=== PATIENT | female | born 1960 | race Caucasian/White ===

== ENCOUNTER → 2018-09-14 15:14 | Outpatient (POV) | payer BC, SELFPAY | PROVIDERS: Visit Provider Dermatology | DX: Z00.00 Encounter for general adult medical examination without abnormal findings (principal) ==

== ENCOUNTER 2019-09-28 23:28 | Emergency (ER) | payer OTHER, BC, SELFPAY ==
[2019-09-28 23:30] VITALS: BP 143/87; PULSE 80; RESP 16; TEMP 36.6; O2SAT 100; BMI 41.1
--- NOTE | 2019-09-29 00:02 | HMH.EDLOEX ---
ED Disposition Clinical Impression: Right knee injury Qualifiers: Encounter type: initial encounter Qualified Code(s): S89.91XA - Unspecified injury of right lower leg, initial encounter Injury of lower leg Qualifiers: Encounter type: initial encounter Laterality: right Qualified Code(s): S89.91XA - Unspecified injury of right lower leg, initial encounter Patellar fracture Qualifiers: Encounter type: initial encounter Fracture type: closed Fracture morphology: unspecified fracture morphology Fracture alignment: nondisplaced Laterality: right Qualified Code(s): S82.001A - Unspecified fracture of right patella, initial encounter for closed fracture Disposition: Home, Self-Care Condition on Discharge: Good Instructions: DI for Knee Pain Additional Instructions: see pcp and ortho for follow up - workman comp form completes Referrals: Abhi Flynn MD [Primary Care Provider] - - Critical Care Critical Care Time: No Attestation: On 09/28/19, the high probability of a clinically significant, sudden or life threatening deterioration of the following system(s) required my full and direct attention, intervention and personal management. The time I documented below is in addition to time spent performing reported procedures but includes the following listed in this critical care notation. Medical Decision Making - Medical Records Medical records reviewed: Yes: I reviewed the patient's medical records. - Isaac Inquiry Pt receiving controlled substance: No Vital Signs: 09/28/19 23:30 09/29/19 00:30 Temperature 97.9 F Temperature Source Oral Pulse Rate [Left Radial] 80 71 Respiratory Rate 16 16 Blood Pressure [Right Arm] 143/87 H 127/78 Blood Pressure Mean [Right Arm] 105 94 Blood Pressure Source [Right Arm] Automatic Cuff Automatic Cuff Blood Pressure Position [Right Arm] Sitting Sitting 02 Sat by Pulse Oximetry 100 100 Oxygen Delivery Method Room Air Room Air - Lab Data Lab results reviewed: Yes: I reviewed the patient's lab results. Orders (Tests/Meds): ORDERS Category Date Time Status XR knee RT 3V Stat Exams 09/29/19 00:12 Taken XR tibia fibula RT 2V Stat Exams 09/29/19 00:16 Taken - Radiology Data #1 Image(s): Knee, Tib/Fib Image Reviewed: Yes I reviewed the patient's radiology image Preliminary Findings: Abnormal (possible patellar avulsion fx ) Lower Extremity Injury HPI - General Chief Complaint: Extremity Injury, Lower Stated Complaint: AER Pain in Rt knee Fall 2044 work Time Seen by Provider: 09/28/19 23:40 Mode of Arrival: Wheelchair Source of Information: Patient, Medical Record Limitations: No Limitations Description of Symptoms (Recalled from ER Triage Doc. by RN): pt works at [employer] and stated she tripped on a rug and fell on her right knee. pt denies any LOC or head injury or hip pain at this time. - History of Present Illness HPI Narrative: pt works at [employer] and tripped with rt lower and rt knee injury - no other c/o MD complaint: knee injury, leg injury Onset (ago): hour(s) Injury: Right: knee Type of Injury: blunt Place: work Severity: moderate Context: fall Associated symptoms: swelling, able to partially bear weight Other symptoms: none - Related Data Home Medications Medication Instructions Recorded Confirmed aspirin 81 mg tablet,delayed 81 mg PO DAILY 12/17/17 11/26/18 release calcium carbonate 500 mg calcium 500 mg PO BID tab 12/17/17 11/26/18 (1,250 mg) tablet carvedilol 12.5 mg tablet 12.5 mg PO DAILY 30 Days #60 tab 12/17/17 11/26/18 cholecalciferol (vitamin D3) 25 1,000 unit PO DAILY 12/17/17 11/26/18 mcg (1,000 unit) capsule citalopram 20 mg tablet 20 mg PO DAILY 30 Days #30 tab 12/17/17 11/26/18 ergocalciferol (vitamin D2) 1,250 50,000 units PO DAILY 84 Days #3 12/17/17 11/26/18 mcg (50,000 unit) capsule cap furosemide 20 mg tablet 20 mg PO DAILY 60 Days #30 tab 12/17/17 11/26/18 multivitamin with minerals 2 tab PO TID
--- NOTE | 2019-09-29 00:12 | XR_ITS ---
PROCEDURE: XR KNEE RT 3V CLINICAL INDICATION: fall at work Posttraumatic pain COMPARISON: No exams were available for comparison FINDINGS: No fracture or dislocation. No lytic or blastic change. There is normal mineralization. Osteoarthritic changes are present involving all 3 compartments Other findings:None. IMPRESSION: Osteoarthritis otherwise negative Dictated by: Pan Chase MD 09/29/2019 10:19 Electronically signed by Pan Chase MD in [place] 09/29/2019 10:19
--- NOTE | 2019-09-29 00:16 | XR_ITS ---
PROCEDURE: XR TIBIA FIBULA RT 2V CLINICAL INDICATION: fall at work Fall with injury and pain COMPARISON: No exams were available for comparison FINDINGS: No fracture or dislocation. No lytic or blastic change. There is normal mineralization. Mild osteoarthritic changes at the knee Other findings:None. IMPRESSION: No acute findings. Dictated by: Pan Chase MD 09/29/2019 10:29 Electronically signed by Pan Chase MD in [place] 09/29/2019 10:29
[2019-09-29 00:30] VITALS: BP 127/78; PULSE 71; RESP 16; O2SAT 100
--- NOTE | 2019-09-29 01:10 | PC.NURSE ---
Pt states she has a knee immobilizer at home already, pt given crutches and demonstrated use.
[2019-09-29 01:21] VITALS: BP 121/69; PULSE 84; RESP 16; TEMP 36.9; O2SAT 98
== END 2019-09-29 01:25 | disposition home or self-care (01) ==
PROVIDERS: Emergency Provider Emergency Medicine; PCP Family Medicine
DX: S82.001A Unspecified fracture of right patella, initial encounter for closed fracture (principal); W01.0XXA Fall on same level from slipping, tripping and stumbling without subsequent striking against object, initial encounter; Y92.63 Factory as the place of occurrence of the external cause; Y99.0 Civilian activity done for income or pay
CPT/HCPCS: 73562; 73590; 99283

== ENCOUNTER 2019-12-08 08:00 | Outpatient (RCR) | payer OTHER, SELFPAY | END 2019-12-08 09:00 | disposition home or self-care (01) | LOC: PT 08:00 | PROVIDERS: Visit Provider Physician Assistant Surgical | DX: I89.0 Lymphedema, not elsewhere classified; S82.831D Other fracture of upper and lower end of right fibula, subsequent encounter for closed fracture with routine healing | CPT/HCPCS: 97010; 97014; 97110; 97140; 97163; 97164; 97760; G0283 ==

== ENCOUNTER → 2020-01-03 08:49 | Outpatient (CLI) | payer BC, SELFPAY ==
--- NOTE | 2020-01-03 09:00 | XR_ITS ---
PROCEDURE: XR SHOULDER LT MIN 2V CLINICAL INDICATION: LT SHOULDER PAIN,DECREASED ROM COMPARISON: No exams were available for comparison FINDINGS: Osteoarthritic changes are present at the acromioclavicular joint and glenohumeral joint. No significant subacromial stenosis. No fracture or dislocation. Other findings:None. IMPRESSION: Mild osteoarthritic change Dictated by: Pan Chase MD 01/03/2020 19:04 Pan Chase MD in [place] 01/03/2020 19:04
== END ==
PROVIDERS: PCP Nurse Practitioner Family; Visit Provider Nurse Practitioner Family
DX: M25.512 Pain in left shoulder (principal); M25.612 Stiffness of left shoulder, not elsewhere classified
CPT/HCPCS: 73030

== ENCOUNTER → 2020-01-13 08:47 | Outpatient (CLI) | payer BC, SELFPAY ==
--- NOTE | 2020-01-13 | CA_ITS ---
APPROVED REPORT Left Lower Extremity Venous Study for DVT. Specialist Physician: STACEY Indications Lower Extremity Pain: Left Lower Extremity Edema: Left Lower Extremity Swelling: Left Bruising left lower extremity post trauma 01/07/20. Patient fell over a dog injuring her left leg and head with this fall. Risk Factors Trauma Obesity Vein Imaging CFV (L): compressive, spontaneous, phasic, augmentation FEM (L): compressive, spontaneous, phasic, augmentation POP (L): compressive, spontaneous, phasic, augmentation PTV (L): Not Visualized GSV (L): compressive, spontaneous, phasic, augmentation SSV (L): Compressible Peroneals (L):Not Visualized GAS (L): Compressible Findings No evidence of DVT or superficial thrombophlebitis in the veins scanned of the left lower extremity. Non-vascularized cystic structure visualized in the left popliteal fossa consistent with bakers cyst. Conclusion No evidence of DVT or superficial thrombophlebitis in the veins scanned of the left lower extremity. Non-vascularized cystic structure visualized in the left popliteal fossa consistent with bakers cyst. Electronically signed by : Mando Howard MD 01/13/2020 18:13:19
--- NOTE | 2020-01-13 08:58 | XR_ITS ---
PROCEDURE: XR KNEE LT 3V Referring Doctor: Vidya Blevins Patient Age:59Y CLINICAL INDICATION: PAIN IN L LEG, INJURY OF LEFT LOWER EXTREMITY patient fell walking a dog on 01/07/2020. Anterior pain swelling bruising about knee and lower leg. Pain with bending the COMPARISON: CR XR KNEE RT 3V from 09/29/2019 FINDINGS: Left knee-three views AP lateral and oblique nonweightbearing but No discrete acute fracture evident. No dislocation but. No lytic or blastic change. There is normal mineralization. There are degenerative changes at the left knee with marginal osteophytes developing most evident from the medial margin of the medial compartment. Borderline to slight narrowing of the medial compartment on this nonweightbearing film but There appears to be a small joint effusion suprapatellar bursa. Also there appears to be some focal swelling or edema just overlying patellar tendon which may reflect recent trauma or hematoma. .. No foreign body evident IMPRESSION: No acute fracture evident. Degenerative changes at the left knee most evident developing at medial compartment. Suspect small joint effusion suprapatellar bursa Also suggestion some focal swelling or possible hematoma within soft tissues overlying the patellar tendon. Correlation required Dictated by: Mando Howard MD 01/13/2020 12:22 Mando Howard MD in [place] 01/13/2020 12:22
--- NOTE | 2020-01-13 08:59 | XR_ITS ---
PROCEDURE: XR FEMUR LT 2V Referring Doctor: Vidya Blevins Patient Age:59Y CLINICAL INDICATION: PAIN IN L LEG, INJURY OF LEFT LOWER EXTREMITY patient fell walking a dog on 01/07/2020. Anterior pain swelling bruising about knee and lower leg. Pain with bending the COMPARISON: CR XR KNEE LT 3V from 01/13/2020 CR XR TIBIA FIBULA LT 2V from 01/13/2020 FINDINGS: Left femur AP and lateral view performed. Left femur intact with no fracture or dislocation. No lytic or blastic change. There is normal mineralization.. This left mammary exam includes the left hip and left knee but no acute findings here. Degenerative changes at left knee noted along with likely small joint effusion suprapatellar bursa IMPRESSION: Left femur intact with no fracture. Dictated by: Mando Howard MD 01/13/2020 12:13 Mando Howard MD in [place] 01/13/2020 12:13
--- NOTE | 2020-01-13 08:59 | XR_ITS ---
PROCEDURE: XR TIBIA FIBULA LT 2V Referring Doctor: Vidya Blevins Patient Age:59Y CLINICAL INDICATION: PAIN IN L LEG, INJURY OF LEFT LOWER EXTREMITY patient fell walking a dog on 01/07/2020. Anterior pain swelling bruising about knee and lower leg. Pain with bending knee COMPARISON: CR XR TIBIA FIBULA RT 2V from 09/29/2019 CR XR KNEE LT 3V from 01/13/2020 FINDINGS: The tibia and fibula are intact no fracture evident. This lower leg study includes limited two views of ankle and left knee which reveal no acute fracture. Developing mild degenerative changes at the left knee most evident towards medial compartment observed IMPRESSION: Left lower leg intact. No fracture. . Dictated by: Mando Howard MD 01/13/2020 12:17 Mando Howard MD in [place] 01/13/2020 12:17
== END ==
PROVIDERS: PCP Nurse Practitioner Family; Visit Provider Nurse Practitioner Family
DX: M79.605 Pain in left leg (principal); M79.89 Other specified soft tissue disorders; S89.92XA Unspecified injury of left lower leg, initial encounter
CPT/HCPCS: 73552; 73562; 73590; 93971

== ENCOUNTER → 2020-02-09 09:14 | Outpatient (CLI) | payer BC, SELFPAY ==
--- NOTE | 2020-02-09 09:16 | XR_ITS ---
PROCEDURE: XR SHOULDER LT MIN 2V CLINICAL INDICATION: Lt shoulder pain Pain with limited range of motion COMPARISON: CR XR SHOULDER LT MIN 2V from 01/03/2020 FINDINGS: No fracture or dislocation. No lytic or blastic change. There is normal mineralization. There are osteoarthritic changes involving the acromioclavicular joint. No acute fracture or dislocation. No significant subacromial stenosis. The glenohumeral joint has an unremarkable appearance. Other findings:None. IMPRESSION: Mild osteoarthritis of the AC joint Dictated by: Pan Chase MD 02/09/2020 10:00 Pan Chase MD in [place] 02/09/2020 10:00
== END ==
PROVIDERS: PCP Family Medicine; Visit Provider Orthopaedic Surgery
DX: M25.512 Pain in left shoulder (principal)
CPT/HCPCS: 73030

== ENCOUNTER 2020-02-14 07:45 | Outpatient (RCR) | payer BC, SELFPAY ==
--- NOTE | 2020-02-14 09:01 | HMH.PTOPEV ---
PT Outpatient Evaluation Rehab PT Outpatient Evaluation Start: 02/14/20 08:48 Freq: Status: Active Protocol: Document 02/14/20 08:48 MALLY (Rec: 02/14/20 09:01 MALLY [id number]) Electronically Signed By John Da Silva, PT 02/14/20 08:48 Outpatient Therapy Subjective History Subjective History Patient is a 59 year old female presenting to outpatient PT with reports of chronic L shoulder pain of insidious onset starting approximately 4 months ago that has progressively gotten worse. Signs and symptoms consistent with L rotator cuff impingement syndrome. Significant forward shoulder posture noted. Most recent imaging indicates mild L shoulder ACJ OA. Comorbidities include SVT, HTN, hx of LS discectomy and elevated BMI. Chief Complaint Pain,Paresthesia,Weakness Symptom Type Ache,Numbness,Tingling Symptoms Relieved By Rest/Positioning,OTC Meds Symptoms Aggravated By Physical Activity,Lifting Prior Functional Limitations None Current Functional Limitations Reaching,Lifting,Housework, Dressing,Driving Symptom Description Intermittent Level of pain today (0-10) 0 Pain scale - at its best (0-10) 0 Pain scale - at its worst (0-10) 9 Shoulder/Elbow Eval Shoulder Objective Measurements Palpation Tenderness tenderness over the SA bursa shoulder left exam standard Shoulder Palpation Overall Comment 2/4 Posture Shoulder Posture Sitting Position (L) Forward,(R) Forward Shoulder Posture Standing Position (L) Forward,(R) Forward Scapula Posture Sitting Position (L) Protracted,(R) Protracted Scapular Posture Standing Position (L) Protracted,(R) Protracted Flexibilty Deficits Upper Trapezius Muscle Length (R) Moderate Tightness,(L) Moderate Tightness Levaetor Scapulae Muscle Length (R) Moderate Tightness,(L) Moderate Tightness Shoulder ROM Left Shoulder Abduction Active Range of 92 Motion (degrees) Shoulder Flexion Active Range of Motion 88 (degrees) Query Text: Shoulder External Rotation Active Range 80 of Motion (degrees) Shoulder Internal Rotation Active Range 65 of Motion (degrees) pain with active ROM shoulder exam left standard pain with passive ROM shoulder exam left standard
== END 2020-02-14 07:50 | disposition home or self-care (01) ==
LOC: PT 07:45
PROVIDERS: PCP Family Medicine; Visit Provider Orthopaedic Surgery
DX: M25.512 Pain in left shoulder (principal); M25.812 Other specified joint disorders, left shoulder; M75.42 Impingement syndrome of left shoulder
CPT/HCPCS: 97163

== ENCOUNTER → 2020-07-23 09:28 | Outpatient (CLI) | payer BC, SELFPAY | PROVIDERS: PCP Family Medicine; Visit Provider Nurse Practitioner Family | DX: R06.00 Dyspnea, unspecified (principal); R07.9 Chest pain, unspecified; R00.2 Palpitations; I10 Essential (primary) hypertension; R60.0 Localized edema | CPT/HCPCS: 93270 ==

== ENCOUNTER → 2020-08-10 06:15 | Outpatient (CLI) | payer BC, SELFPAY ==
--- NOTE | 2020-08-10 06:16 | NM_ITS ---
APPROVED REPORT Exam: Nuclear Stress Test Indication: HTN, FM HX., SOB, FATIGUE Patient Location: Outpatient Stress Tech: Breana YOUNG Tech:Zeynep JenningsJAYLON RT(R)(N) Ht: 5 ft 4 in Wt: 240 lbs Bra Size: 42DD HR: 77 bpm BP: 149/96 mmHg BSA: 2.11 m2 BMI: 41.1 History: HTN, FM HX., SOB, FATIGUE Procedure: Patient received a 0.4 mg of intravenous Lexiscan, resting heart rate 77 bpm, resting blood pressure 149/96 mmHg, with Lexiscan maximum heart rate achived was 106 bpm which is Less than 85 % of the maximum predicted heart rate and blood pressure was 170/109 mmHg. With Lexiscan, patient denied any complaint of chest pain. Electrocardiogram Resting electrocardiogram shows sinus rhythm, with Lexiscan there is less than 1.[address] segment depression noted from the baseline EKG. The EKG portion of the Lexiscan is nondiagnostic. Cardiac Stress and Resting SPECT Images: Cardiac Stress and Resting SPECT images were obtained using technetium 99m Myoview 32.9 mCi stress and 10.52 mCi at rest. Gated SPECT for analysis of segmental wall motion and calculation of the ejection fraction also done. Prone images were also obtained. Cardiac stress and resting SPECT images show uniform myocardial activity without segmental perfusion abnormality, computer derived ejection fraction is over 65% with no regional wall motion abnormality, right ventricle is normal size and contractility. However there is transient ischemic dilatation of the left ventricle seen, raising the concerns for presence of balanced ischemia. Conclusion: 1. The EKG portion of the Lexiscan is nondiagnostic. 2. No scintigraphic evidence of reversible ischemia seen, computer derived ejection fraction is over 65% with no regional wall motion abnormality, right ventricle is normal size and contractility, there is transient ischemic dilatation of the left ventricle seen, raising the concerns of balanced ischemia. 3. Abnormal Lexiscan Myoview study. Electronically signed by : Eliu Pires, 08/10/2020 11:38:09
--- NOTE | 2020-08-10 06:16 | CA_ITS ---
APPROVED REPORT Exam: Pharmacologic Technologist: Breana Ratliff Ht: 5 ft 4 in Wt: 240 lbs BSA: 2.11 m2 HR: 77 bpm BP: 149/96 mmHg Rhythm: Sinus rhythm Medical History Medical History: HTN Medications: Asa,,,,, Carvedilol,,,,, Citalopram,,,,, Lasix,,,,, Naproxen,,,,, Calcium,,,,, Vit D 3,,,,, Fexofenadine,,,,, Lisinopri/HCTZ,,,,, OmPEprazole,,,,, Cardiac Risk Factors: HTN Stress Test Details Test: LEXISCAN HR Resting HR: 80 bpm Max Heart Rate (APMHR): 163.856172 bpm Max HR Achieved: 117 bpm Target HR (85% APMHR): 138.681813 bpm % of APMHR: 71.78 Recovery HR: 95 bpm BP Resting BP: 149/96 mmHg Max BP: 170/109 mmHg Recovery BP: 170.0/109.0 mmHg ECG Resting ECG: Sinus rhythm Clinical Exercise duration: 04:01 min Highest Stage Achieved: Exercise capacity: 1.0 METs Stress ECG Conclusion During the lexiscan patient complained of shortness of breath during peak infusion. Resolved in recovery. No complaints of chest pain. No arrhythmias or ectopy noted. Less than 1.5mm ST segment changes. Images to follow. Instructed pt to take AM BP medications. Test Summary REST . . . . . . . Sitting REST 09:05 . . 80 . 149/ 96 . . Stage 1 . . . . . . . Myoview Injected Stage 1 01:00 . . 104 . . . . Stage 2 01:00 . . 106 . 150/ 90 . . Stage 3 01:00 . . 101 . 158/102 . . Stage 4 01:00 . . 93 . 167/107 . . Stage 4 01:01 . . 93 . 167/107 . Stop exercise at 04:01 RECOVERY 01:00 . . 93 . . . . RECOVERY 02:00 . . 93 . 170/109 . . RECOVERY 03:00 . . 87 . 170/109 . . RECOVERY 04:00 . . 86 . 170/109 . . RECOVERY 05:00 . . 86 . 170/109 . . RECOVERY 05:37 . . 86 . 144/ 90 . . Electronically signed by : Eliu Pires, 08/10/2020 10:11:08
--- NOTE | 2020-08-10 06:16 | CA_ITS ---
APPROVED REPORT EXAM: Comprehensive 2D, Doppler, and color-flow Echocardiogram Cia Agent: Marisela Sigala CRT Ht: 5 ft 4 in Wt: 240lbs BSA: 2.11 BP: 130/74 mmHg Indications: Chest Pain, Congestive Heart Failure, Shortness of Breath, Obesity, Palpitations, Peripheral Edema, SVT, NINOSKA, ex smoker 2D Dimensions LVOT 2.10 cm (M/F) 1.5-2.5 LA Volume 55.40 mL LA Volume Index 26.30 mL/m2 (M/F) 16-34 M-Mode Dimensions RVDd 2.34 cm (0.9-2.6) LA Diam 3.64 cm (1.9-4.0) LVDd 4.72 cm (3.5-5.7) Ao Diam 3.56 cm (2.0-3.7) LVDs 2.31 cm (3.5-5.7) IVSd 1.30 cm (0.6-1.1) PWd 0.87 cm (0.6-1.1) EF (Teich) 82.30% FS 51.10% EDV (Teich) 103.40 mL TAPSE 2.33 (<1.7) ESV (Teich) 18.30 mL LV Diastology E Decel Time 150.00 (160-240 msec) E/A Ratio 0.89 MED E' 7.30 (< 7 cm/sec) MED A' 8.60 cm/s E'/MED E' Ratio 15.33 (>14) LAT E' 9.40 (<10 cm/sec) LAT A' 17.10 cm/s E/LAT E' Ratio 11.90 (>14) Aortic Valve AO Peak GR. 10.50 mmHg Mitral Valve MV E Max Magdiel. 112.00 (40-130 cm/s) MV A Velocity 126.00 (40-130 cm/s) E/A Ratio 0.89 MV Decel. Time 150.00 (160-240 ms) MV PHT 44.00 ms Pulmonary Valve PV Peak Velocity 54.00 (50-150 cm/s) Tricuspid Valve TR P. Velocity 293.00 cm/s RAP Estimate 10.00 mmHg RVSP 44.30 mmHg Left Ventricle Left atrium is mildly enlarged, left ventricle is normal size, left ventricle wall thickness is upper limit of the normal, there is preserved left ventricular systolic function, visually estimated ejection fraction 55% with no regional wall motion abnormality, grade 1 diastolic dysfunction seen without tissue Doppler evidence of raise left atrial pressure. Right Ventricle Right atrium and right ventricle are normal size and contractility. Aortic Valve Aortic valve is minimally thickened and fibrosed, there is no aortic stenosis or aortic insufficiency. Mitral Valve Mitral valve leaflets are minimally thickened, there is no mitral stenosis, there is trace mitral regurgitation. Tricuspid Valve Tricuspid valve is grossly normal, there is trace tricuspid regurgitation, calculated right ventricular systolic pressure is 44 mmHg. Pulmonic Valve Pulmonic valve is poorly visualized. Great Vessels Aortic root is normal size. Pericardium No significant pericardial effusion noted. Conclusion 1. Normal left ventricular size, preserved left ventricular systolic function, visually estimated ejection fraction 55% with no regional wall motion abnormality, grade 1 diastolic dysfunction seen without tissue Doppler evidence of raise left atrial pressure. 2. Trace mitral and tricuspid regurgitation, calculated right ventricular systolic pressure is 44 mmHg. 3. No significant pericardial effusion noted. Electronically signed by : Eliu Pires, 08/10/2020 10:18:26
== END ==
PROVIDERS: PCP Family Medicine; Visit Provider Nurse Practitioner Family
DX: R07.9 Chest pain, unspecified (principal); R06.00 Dyspnea, unspecified; R00.2 Palpitations; I10 Essential (primary) hypertension; R60.0 Localized edema
CPT/HCPCS: 78452; 93017; 93306; A9502; J2785

== ENCOUNTER → 2020-09-10 07:55 | Outpatient (CLI) | payer BC, SELFPAY ==
[2020-09-10 08:37] LABS: Basophils # 0.1 K/mm3 (0-0.2); Basophils % 0.8 % (0.1-2.0); Eosinophils # 0.4 K/mm3 (0.0-0.4); Eosinophils % 5.2 % (0.1-12.0); Hematocrit 35.2 % (37.0-47.0); Hemoglobin 11.3 g/dL (12.2-16.2); Lymphocytes # 2.7 K/mm3 (0.7-4.5); Lymphocytes % 39.1 % (10-50); Mean Corpuscular HGB Conc 32.2 g/dL (31.8-35.4); Mean Corpuscular Hemoglobin 26.7 pg (27.0-31.2); Mean Corpuscular Volume 82.9 fl (81-99); Mean Platelet Volume 8.4 fl (7.4-10.4); Monocytes # 0.5 K/mm3 (0.1-1.0); Monocytes % 6.7 % (1.7-9.3); Neutrophils # 3.3 K/mm3 (1.8-7.8); Neutrophils % 48.3 % (37.0-80.0); Platelet Count 274 K/mm3 (142-424); Red Blood Count 4.25 M/mm3 (4.20-5.40); Red Cell Distribution Width 14.2 % (11.5-17.5); White Blood Count 6.9 K/mm3 (4.8-10.8)
[2020-09-10 10:27] LABS: Anion Gap 9.9 mEq/L (5-15); Blood Urea Nitrogen 12 mg/dl (7-17); Calcium 9.4 mg/dl (8.4-10.2); Carbon Dioxide 26 mmol/L (22.0-30.0); Chloride 110 mmol/L (98-107); Estimated Glomerular Filt Rate 65 ml/min (>60); GFR (African American) 78 ML/MIN (>60); Glucose 86 mg/dl (74-100); Potassium 4.9 mmoL/L (3.5-5.1); Sodium 141 mmol/L (136-145)
== END ==
PROVIDERS: Visit Provider Urology
DX: Z01.812 Encounter for preprocedural laboratory examination (principal); Z11.52 Encounter for screening for COVID-19; R06.00 Dyspnea, unspecified; R94.30 Abnormal result of cardiovascular function study, unspecified; R00.2 Palpitations; I20.9 Angina pectoris, unspecified; I10 Essential (primary) hypertension; R60.0 Localized edema
CPT/HCPCS: 36415; 80048; 85025; U0003

== ENCOUNTER 2020-09-11 08:28 | Day surgery (SDC) | payer BC, SELFPAY ==
[2020-09-11] VITALS (12 sets, daily range): BP systolic 124–159; BP diastolic 71–101; PULSE 58–81; RESP 13–19; TEMP 36.5–36.6; O2SAT 94–100; BMI 41.1
--- NOTE | 2020-09-11 | IR_ITS ---
APPROVED REPORT Patient Location: Outpatient PROCEDURES Left heart catheterization Left ventriculogram Selective coronary INDICATION Abnormal Myoview, Angina pectoris Informed consent was obtained prior to the procedure. COMPLICATIONS NONE Estimated Blood Loss: LESS THAN 10 ML TECHNIQUE One percent lidocaine used to anesthetize the right anterior aspect of the wrist. The right radial artery was accessed via the Seldinger technique. A 6 [place] sheath was placed in the right radial artery. 2.5 mg of verapamil, 800 mcg of nitroglycerin, 1mg Lidocaine and 5000 U Heparin were given through the arterial sheath. The trap catheter was also used to perform left heart catheterization, left ventriculogram and selective coronary angiogram. At the end of the procedure the sheath was removed good hemostasis was achieved using Traclet band, patient was transferred to the postop holding area in stable condition. ANGIOGRAPHIC RESULTS The left main artery Normal The left anterior descending artery Normal The circumflex artery Normal The right coronary artery Dominant normal The MCCONNELL ventriculogram reveals Hyperdynamic 70% The left ventricular end-diastolic pressure Severely elevated at 30 mmHg IMPRESSION Normal coronary arteries Hyperdynamic ventricle consistent with diastolic dysfunction Severely elevated LVEDP consistent with moderate to severe diastolic dysfunction PLAN 1. Treatment of diastolic dysfunction Electronically signed by : Jake Delaney, 09/11/2020 10:57:25
== END 2020-09-11 14:11 | disposition home or self-care (01) ==
LOC: CATHLAB 08:29
PROVIDERS: PCP Family Medicine; Visit Provider Internal Medicine
DX: I20.8 Other forms of angina pectoris (principal); I11.0 Hypertensive heart disease with heart failure; I50.9 Heart failure, unspecified; R06.02 Shortness of breath; R94.39 Abnormal result of other cardiovascular function study; Z87.891 Personal history of nicotine dependence; I47.1 Supraventricular tachycardia
CPT/HCPCS: 93458; 99152; C1725; C1769; J1644; Q9967

== ENCOUNTER 2020-10-02 17:45 | Emergency (ER) | payer BC, SELFPAY ==
[2020-10-02 17:45] VITALS: BP 117/88; PULSE 183; RESP 22; O2SAT 100; BMI 40.6
[2020-10-02 17:53] VITALS: BP 133/94; PULSE 105; RESP 17; O2SAT 99
--- NOTE | 2020-10-02 17:53 | ECG_ITS ---
APPROVED REPORT Exam: Resting ECG HR:182 bpm ECG Measurements Heart Rate 182 AXES QRSd 122 QRS 19 QT 248 T 56 QTc 431 Conclusion Wide QRS tachycardia Nonspecific intraventricular conduction delay Abnormal ECG Electronically signed by : Abhi Pham, 10/05/2020 15:59:22
[2020-10-02 18:00] VITALS: BP 120/87; PULSE 97; RESP 17; O2SAT 97
--- NOTE | 2020-10-02 18:03 | HMH.EDGENADL ---
ED Disposition Clinical Impression: Supraventricular tachycardia Disposition: Home, Self-Care Condition on Discharge: Good Instructions: DI for Paroxysmal Supraventricular Tachycardia Additional Instructions: Call Dr. Delaney's office tomorrow to schedule appointment for follow-up. Return to the emergency department if symptoms recur. Referrals: Provider,Referral, [Referring] - - Critical Care Critical Care Time: No Attestation: On , the high probability of a clinically significant, sudden or life threatening deterioration of the following system(s) required my full and direct attention, intervention and personal management. The time I documented below is in addition to time spent performing reported procedures but includes the following listed in this critical care notation. Medical Decision Making - Medical Records Medical records reviewed: Yes: I reviewed the patient's medical records. MR Comment: Reviewed emergency department records to find most recent visit for SVT, which was 08/11/2013. Reviewed prior left heart cath result, see below. - Isaac Inquiry Pt receiving controlled substance: No Vital Signs: 10/02/20 17:45 10/02/20 17:53 10/02/20 18:00 Pulse Rate 105 H 97 H Pulse Rate [Left Radial] 183 H Respiratory Rate 22 17 17 Blood Pressure 133/94 H 120/87 Blood Pressure [Right Arm] 117/88 Blood Pressure Mean 105 96 Blood Pressure Mean [Right Arm] 97 Blood Pressure Source [Right Arm] Automatic Cuff Blood Pressure Position [Right Arm] Sitting 02 Sat by Pulse Oximetry 100 99 97 Oxygen Delivery Method Room Air 10/02/20 18:30 Pulse Rate 98 H Pulse Rate [Left Radial] Respiratory Rate 16 Blood Pressure 119/86 Blood Pressure [Right Arm] Blood Pressure Mean 92 Blood Pressure Mean [Right Arm] Blood Pressure Source [Right Arm] Blood Pressure Position [Right Arm] 02 Sat by Pulse Oximetry 98 Oxygen Delivery Method - Lab Data Lab Results 10/02/20 17:50: WBC 8.3, RBC 4.53, Hgb 11.9 L, Hct 35.4 L, MCV 78.3 L, MCH 26.3 L, MCHC 33.6, RDW 14.1, Plt Count 343, MPV 8.8, Neut % (Auto) 53.7, Lymph % (Auto) 31.8, [place] % (Auto) 8.1, Eos % (Auto) 5.3, Baso % (Auto) 1.1, Neut # (Auto) 4.4, Lymph # (Auto) 2.6, [place] # (Auto) 0.7, Eos # (Auto) 0.4, Baso # (Auto) 0.1 10/02/20 17:50: Sodium 138, Potassium 4.1, Chloride 105, Carbon Dioxide 22, Anion Gap 15.1 H, BUN 17, Creatinine 0.90, Estimated Creat Clear 116, Estimated GFR 64, Est GFR ( Amer) 78, Glucose 126 H, Calcium 9.4, Troponin I < 0.01 Result diagrams: 10/02/20 17:50 10/02/20 17:50 Orders (Tests/Meds): ED MEDICATIONS Generic Name Dose Route Start Last Admin Trade Name Freq PRN Reason Stop Dose Admin Sodium Chloride 1,000 mls @ 999 mls/hr 10/02/20 18:15 10/02/20 17:51 Sod Chlor 0.9% 1000ml Bag IV 10/02/20 19:15 999 mls/hr .Q1H1M NATE Administration Discontinued Medications Generic Name Dose Route Start Last Admin Trade Name Freq PRN Reason Stop Dose Admin Adenosine 6 mg 10/02/20 18:11 10/02/20 17:51 Adenosine 6mg/2ml Vial IV 10/02/20 18:12 6 mg ONCE ONE Administration ORDERS Category Date Time Status Troponin I Q3H Lab 10/02/20 21:15 Ordered Troponin I Q3H Lab 10/03/20 00:15 Ordered PROCEDURES Left heart catheterization Left ventriculogram Selective coronary INDICATION Abnormal Myoview, Angina pectoris Informed consent was obtained prior to the procedure. COMPLICATIONS NONE Estimated Blood Loss: LESS THAN 10 ML TECHNIQUE One percent lidocaine used to anesthetize the right anterior aspect of the wrist. The right radial artery was accessed via the Seldinger technique. A 6 Citizen [place] sheath was placed in the right radial artery. 2.5 mg of verapamil, 800 mcg of nitroglycerin, 1mg Lidocaine and 5000 U Heparin were given through the arterial sheath. The trap catheter was also used to perform left heart catheterization, left ventriculogram and selective cor
[2020-10-02 18:10] VITALS: BMI 40.6
--- NOTE | 2020-10-02 18:10 | XR_ITS ---
PROCEDURE INFORMATION: Exam: XR Chest Exam date and time: 10/02/2020 6:10 PM Age: 60 years old Clinical indication: Pain; Angina pectoris; Patient HX: Svt; Additional info: Chest pain TECHNIQUE: Imaging protocol: XR of the chest. Views: 1 view. COMPARISON: 1. CR XR SHOULDER LT MIN 2V 02/09/2020 9:17 AM 2. CR XR SHOULDER LT MIN 2V 01/03/2020 9:14 AM FINDINGS: Lungs: Unremarkable. No consolidation. Pleural spaces: Unremarkable. No pleural effusion. No pneumothorax. Heart/Mediastinum: Unremarkable. No cardiomegaly. Bones/joints: Unremarkable. IMPRESSION: No acute findings.
--- NOTE | 2020-10-02 18:10 | ECG_ITS ---
APPROVED REPORT Exam: Resting ECG HR:101 bpm ECG Measurements Heart Rate 101 AXES ID 190 P 59 QRSd 70 QRS 22 QT 344 T 40 QTc 446 Conclusion Sinus tachycardia Otherwise normal ECG Electronically signed by : Abhi Pham, 10/03/2020 17:39:12
[2020-10-02 18:23] LABS: Basophils # 0.1 K/mm3 (0-0.2); Basophils % 1.1 % (0.1-2.0); Eosinophils # 0.4 K/mm3 (0.0-0.4); Eosinophils % 5.3 % (0.1-12.0); Hematocrit 35.4 % (37.0-47.0); Hemoglobin 11.9 g/dL (12.2-16.2); Lymphocytes # 2.6 K/mm3 (0.7-4.5); Lymphocytes % 31.8 % (10-50); Mean Corpuscular HGB Conc 33.6 g/dL (31.8-35.4); Mean Corpuscular Hemoglobin 26.3 pg (27.0-31.2); Mean Corpuscular Volume 78.3 fl (81-99); Mean Platelet Volume 8.8 fl (7.4-10.4); Monocytes # 0.7 K/mm3 (0.1-1.0); Monocytes % 8.1 % (1.7-9.3); Neutrophils # 4.4 K/mm3 (1.8-7.8); Neutrophils % 53.7 % (37.0-80.0); Platelet Count 343 K/mm3 (142-424); Red Blood Count 4.53 M/mm3 (4.20-5.40); Red Cell Distribution Width 14.1 % (11.5-17.5); White Blood Count 8.3 K/mm3 (4.8-10.8)
[2020-10-02 18:25] LABS: Anion Gap 15.1 mEq/L (5-15); Blood Urea Nitrogen 17 mg/dl (7-17); Calcium 9.4 mg/dl (8.4-10.2); Carbon Dioxide 22 mmol/L (22.0-30.0); Chloride 105 mmol/L (98-107); Creatinine Clearance Estimated 116 mL/min (50-200); Estimated Glomerular Filt Rate 64 ml/min (>60); GFR (African American) 78 ML/MIN (>60); Glucose 126 mg/dl (74-100); Potassium 4.1 mmoL/L (3.5-5.1); Sodium 138 mmol/L (136-145)
[2020-10-02 18:30] VITALS: BP 119/86; PULSE 98; RESP 16; O2SAT 98
[2020-10-02 18:40] LABS: Troponin I < 0.01 ng/ml (0.00-0.034)
[2020-10-02 19:14] VITALS: BP 127/84; PULSE 97; RESP 18; TEMP 36.9; O2SAT 98
== END 2020-10-02 19:35 | disposition home or self-care (01) ==
PROVIDERS: Emergency Provider Emergency Medicine; PCP Emergency Medicine
DX: I47.2 Ventricular tachycardia (principal); I10 Essential (primary) hypertension; Z87.891 Personal history of nicotine dependence; Z79.899 Other long term (current) drug therapy
CPT/HCPCS: 71045; 80048; 84484; 85025; 93005; 96365; 96375; 99282

== ENCOUNTER → 2020-10-12 09:18 | Outpatient (CLI) | payer BC, SELFPAY | PROVIDERS: PCP Emergency Medicine; Visit Provider Nurse Practitioner Family | DX: G47.33 Obstructive sleep apnea (adult) (pediatric) (principal) | CPT/HCPCS: 94762 ==

== ENCOUNTER → 2020-12-14 09:51 | Outpatient (CLI) | payer BC, SELFPAY | PROVIDERS: PCP Emergency Medicine; Visit Provider Nurse Practitioner Family | DX: G47.33 Obstructive sleep apnea (adult) (pediatric) (principal); G47.34 Idiopathic sleep related nonobstructive alveolar hypoventilation | CPT/HCPCS: 94762 ==

== ENCOUNTER 2021-04-26 09:08 | Emergency (ER) | payer BC, SELFPAY ==
[2021-04-26 09:32] VITALS: BP 133/70; PULSE 86; RESP 18; TEMP 36.4; O2SAT 97; BMI 41.1
--- NOTE | 2021-04-26 09:36 | HMH.EDUTC ---
[facility] Disposition Clinical Impression: Viral syndrome, Exposure to COVID-19 virus Sinusitis Qualifiers: Sinusitis location: unspecified location Chronicity: acute Recurrence: non-recurrent Qualified Code(s): J01.90 - Acute sinusitis, unspecified Disposition: Home, Self-Care Condition on Discharge: Good Instructions: DI for Sinusitis, Preventing the Spread of Coronavirus Discharge Instructions, DI for COVID-19 (Suspected or Confirmed ), DI for Viral Syndrome Additional Instructions: Drink plenty of fluids. Take tylenol or ibuprofen for pain or fever. Take the medications as directed. Follow up with your regular doctor. GO TO THE ER FOR ANY WORSENING SYMPTOMS Quarantine until you know the results of your covid-19 test. If it is positive, the health department should call you and give you further instructions about your length of Quarantine and other things. Notify your school or workplace of your results and follow their instructions regarding return to work/school. The cough medication (promethazine dm) will make you drowsy, so don't drive or operate heavy machinery after taking it. Prescriptions: Promethazine/Dextromethorphan [Promethazine-Dm Syrup] 5 ml PO Q6HP PRN #240 ml PRN Reason: Cough Transmission Status: Pending to [place] # methylPREDNISolone [Medrol] 4 mg PO DIRECTED 6 Days #21 packet Transmission Status: Pending to [place] # Azithromycin [Z-Rafa 250mg Tab*] 250 mg PO UD DOSE PK #6 tab Transmission Status: Pending to [place] # Referrals: Provider,Referral, [Primary Care Provider] - Time of Disposition: 10:10 Medical Decision Making - Medical Records Medical records reviewed: No: I reviewed the patient's medical records. - Isaac Inquiry Pt receiving controlled substance: No Vital Signs: 04/26/21 09:32 Temperature 97.5 F L Temperature Source Temporal Artery Scan Pulse Rate [Left] 86 Respiratory Rate 18 Blood Pressure [Right Arm] 133/70 Blood Pressure Mean [Right Arm] 91 02 Sat by Pulse Oximetry 97 - Lab Data Lab results reviewed: Yes: I reviewed the patient's lab results. Lab Results 04/26/21 09:39: Strep Scn [facility] Negative 04/26/21 09:56: Influenza Type A Ag Negative, Influenza Type B Ag Negative Orders (Tests/Meds): ORDERS Category Date Time Status Covid-19 Nasal PCR ([facility]) Routine Lab 04/26/21 09:39 Ordered Strep Screen Confirmation Stat Micro 04/26/21 09:39 Received [facility] HPI - General Stated complaint: sore throat, cough, congestion Time Seen by Provider: 04/26/21 09:36 - History of Present Illness Provider Complaint: She c/o feeling bad for the past 3 days. She has sinus congestion, ear pain, scratchy sore throat and nausea (but she has not vomited or diarrhea). She has been vaccinated against covid-19. - Related Data Home Medications Medication Instructions Recorded Confirmed aspirin 81 mg tablet,delayed 81 mg PO DAILY 12/17/17 03/20/21 release calcium carbonate 500 mg calcium 500 mg PO BID tab 12/17/17 03/20/21 (1,250 mg) tablet cholecalciferol (vitamin D3) 25 1,000 unit PO DAILY 12/17/17 03/20/21 mcg (1,000 unit) capsule citalopram 20 mg tablet 20 mg PO DAILY 30 Days #30 tab 12/17/17 03/20/21 Fexofenadine HCl [Aller-Fex] 180 mg PO DAILY 09/21/18 03/20/21 multivitamin with minerals 1 tab PO DAILY tab 07/23/20 03/20/21 omeprazole 40 mg capsule,delayed 40 mg PO DAILY cap 07/23/20 03/20/21 release Previous Rx's Medication Instructions Recorded lisinopril 5 mg tablet 5 mg PO DAILY #30 tab 01/30/21 furosemide 40 mg tablet 40 mg PO DAILY #30 tab 04/19/21 spironolactone 50 mg tablet 50 mg PO DAILY #30 tab 04/19/21 Azithromycin [Z-Rafa 250mg Tab*] 250 mg PO UD DOSE PK #6 tab 04/26/21 Promethazine/Dextromethorphan 5 ml PO Q6HP PRN #240 ml 04/26/21 [Promethazine-Dm Syrup] methylPREDNISolone [Medrol] 4 mg PO DIRECTED 6 Days #21 04/26/21 packet
[2021-04-26 09:48] LABS: UTC Strep Screen (Rapid) Negative (Negative)
[2021-04-26 10:06] LABS: UTC Influenza A Antigen Negative (Negative); UTC Influenza B Antigen Negative (Negative)
[2021-04-26 10:08] VITALS: BP 133/70; PULSE 86; RESP 18; TEMP 36.4
== END 2021-04-26 10:30 | disposition home or self-care (01) ==
PROVIDERS: Emergency Provider Nurse Practitioner Family
DX: J01.90 Acute sinusitis, unspecified (principal); U07.1 COVID-19; F41.8 Other specified anxiety disorders; K21.9 Gastro-esophageal reflux disease without esophagitis
CPT/HCPCS: 87804; 87880; 99203; C9803; G0463; U0003; U0005

== ENCOUNTER → 2022-02-18 10:19 | Outpatient (CLI) | payer BC, SELFPAY ==
--- NOTE | 2022-02-18 10:33 | MM_ITS ---
PROCEDURE INFORMATION: Exam: Bilateral Screening 3D Mammography Exam date and time: 02/18/2022 10:30 AM Age: 61 years old Clinical indication: Screening. No family history of breast cancer. TECHNIQUE: Imaging protocol: Bilateral Screening tomosynthesis and 2D mammography including computer-aided detection (CAD) when performed. COMPARISON: 1. [facility] [place] DIGITAL SCREEN BILATERAL 01/02/2021 11:17 AM - corrupted images 2. [facility] [place] DIGITAL SCREEN BILATERAL 09/15/2018 8:07 AM FINDINGS: MAMMOGRAPHY: Breast composition: There are scattered areas of fibroglandular density. Mass: No suspicious mass. Architectural distortion: None. Calcifications: No suspicious calcifications. Asymmetric density: None. Skin thickening: None. Axillary adenopathy: None. IMPRESSION: No mammographic evidence of malignancy. Annual screening is recommended unless otherwise clinically indicated. ASSESSMENT: BI-RADS Category 1: Negative
== END ==
PROVIDERS: PCP Emergency Medicine; Visit Provider Emergency Medicine
DX: Z12.31 Encounter for screening mammogram for malignant neoplasm of breast (principal)
CPT/HCPCS: 77063; 77067

== ENCOUNTER → 2022-04-01 09:32 | Outpatient (CLI) | payer BC, SELFPAY ==
[2022-04-01 09:46] LABS: MANUAL DIFFERENTIAL MANUAL DIFFERENTIAL (MANUAL DIFF)
[2022-04-01 09:54] LABS: Microscopic, Urine URINE MICROSCOPIC (MICROSCOPIC)
[2022-04-01 10:26] LABS: Basophils # 0.1 K/mm3 (0-0.2); Eosinophils # 0.3 K/mm3 (0.0-0.4); Eosinophils % 4.5 % (0.1-12.0); Hematocrit 33.7 % (37.0-47.0); Lymphocytes # 1.5 K/mm3 (0.7-4.5); Lymphocytes % 27.2 % (10-50); Mean Corpuscular HGB Conc 32.7 g/dL (31.8-35.4); Mean Corpuscular Hemoglobin 26.7 pg (27.0-31.2); Mean Corpuscular Volume 81.6 fl (81-99); Mean Platelet Volume 9.5 fl (7.4-10.4); Monocytes # 0.4 K/mm3 (0.1-1.0); Monocytes % 7.1 % (1.7-9.3); Neutrophils # 3.3 K/mm3 (1.8-7.8); Neutrophils % 60.2 % (37.0-80.0); Platelet Count 315 K/mm3 (142-424); Red Blood Count 4.13 M/mm3 (4.20-5.40); Red Cell Distribution Width 14.7 % (11.5-17.5); White Blood Count 5.5 K/mm3 (4.8-10.8)
[2022-04-01 10:30] LABS: Appearance,Urine CLEAR (Clear); Bilirubin,Urine Negative (Negative); Blood, Urine Negative (Negative); Color,Urine YELLOW (Yellow); Glucose,Urine (UA) Negative (Negative); Ketones,Urine Negative (Negative); Leukocyte Esterase,Urine Negative (Negative); Nitrate,Urine Negative (Negative); Protein,Urine Negative (Negative); Urobilinogen,Urine 0.2 EU/dl (0.2)
[2022-04-01 10:49] LABS: Alanine Aminotransferase 21 U/L (12-78); Albumin Level 4.4 g/dl (3.5-5.0); Albumin/Globulin Ratio 1.6 (1.1-1.8); Alkaline Phosphatase 104 U/L (38-126); Anion Gap 10.2 mEq/L (5-15); Aspartate Amino Transferase 28 U/L (14-36); Bilirubin,Total 0.4 mg/dl (0.2-1.3); Blood Urea Nitrogen 16 mg/dl (7-17); Calcium 9.8 mg/dl (8.4-10.2); Carbon Dioxide 27 mmol/L (22.0-30.0); Chloride 107 mmol/L (98-107); Chol/HDL Ratio 2.5 (1-3.5); Cholesterol 187 mg/dl (140-200); Estimated Glomerular Filt Rate 57 ml/min (>60); GFR (African American) 69 ML/MIN (>60); Globulin 2.7 g/dL (1.3-3.2); Glucose 92 mg/dl (74-100); HDL Cholesterol 75 mg/dl (40-60); Potassium 4.2 mmoL/L (3.5-5.1); Sodium 140 mmol/L (136-145); Total Protein,Serum 7.1 g/dl (6.3-8.2); Triglycerides 51 mg/dl (30-150); VLDL Cholesterol 10 mg/dL (0-40)
[2022-04-01 10:51] LABS: Anisocytosis 1+; Eosinophils % 1 % (0-3); Hypochromasia 1+; Lymphocytes % 24 % (10-50); Monocytes % 13 % (2-9); Neutrophils % 62 % (42-76); Ovalocytes 1+; Platelet Estimate Normal; Total Cells Counted 100
[2022-04-01 10:59] LABS: Bacteria,Urine Trace /lpf
[2022-04-01 11:00] LABS: Direct LDL Cholesterol 79.66 mg/dL (100-129)
== END ==
PROVIDERS: PCP Family Medicine; Visit Provider Family Medicine
DX: I50.9 Heart failure, unspecified (principal); K21.9 Gastro-esophageal reflux disease without esophagitis; I10 Essential (primary) hypertension; F32.A Depression, unspecified; F41.9 Anxiety disorder, unspecified
CPT/HCPCS: 36415; 80053; 80061; 81001; 84443; 85007; 85014; 85018; 85048; 85049

== ENCOUNTER → 2022-07-02 16:44 | Outpatient (CLI) | payer BC, SELFPAY ==
--- NOTE | 2022-07-02 16:57 | XR_ITS ---
PROCEDURE INFORMATION: Exam: XR Left Knee Exam date and time: 07/02/2022 4:58 PM Age: 61 years old Clinical indication: Pain; Knee; Left; Additional info: Knee pain TECHNIQUE: Imaging protocol: Radiologic exam of the left knee. Views: 3 views. COMPARISON: CR XR KNEE LT 3V 01/13/2020 9:03 AM FINDINGS: Bones/joints: Moderate degenerative changes along the lateral aspect of patellofemoral joint with joint space narrowing, subchondral sclerosis and marginal spurring resulting in mild flattening of the articular margins. Less pronounced degenerative changes of the medial knee compartment. No fracture, dislocation or malalignment. Soft tissues: No significant joint effusion. IMPRESSION: Moderate degenerative changes most apparent lateral aspect patellofemoral joint.
--- NOTE | 2022-07-02 16:57 | XR_ITS ---
PROCEDURE INFORMATION: Exam: XR Left Elbow Exam date and time: 07/02/2022 4:58 PM Age: 61 years old Clinical indication: Pain; Elbow; Left; Additional info: Elbow pain TECHNIQUE: Imaging protocol: Radiologic exam of the left elbow. Views: 3 or more views. COMPARISON: CR XR SHOULDER LT MIN 2V 02/09/2020 9:17 AM FINDINGS: Bones/joints: Osseous structures are intact. No fracture or malalignment. Visualized joint surfaces are preserved. Soft tissues: Unremarkable. No joint effusion detected. IMPRESSION: Negative exam. No acute bony abnormalities.
--- NOTE | 2022-07-02 16:57 | XR_ITS ---
PROCEDURE INFORMATION: Exam: XR Right Elbow Exam date and time: 07/02/2022 4:58 PM Age: 61 years old Clinical indication: Pain; Elbow; Right; Additional info: Elbow pain TECHNIQUE: Imaging protocol: Radiologic exam of the right elbow. Views: 3 or more views. COMPARISON: No relevant prior studies available. FINDINGS: Bones/joints: Osseous structures are intact. No fracture or malalignment. Visualized joint surfaces are preserved. Soft tissues: Unremarkable. No joint effusion detected. IMPRESSION: Negative exam. No acute bony abnormalities.
--- NOTE | 2022-07-02 16:57 | XR_ITS ---
PROCEDURE INFORMATION: Exam: XR Right Knee Exam date and time: 07/02/2022 4:58 PM Age: 61 years old Clinical indication: Pain; Knee; Right; Additional info: Knee pain TECHNIQUE: Imaging protocol: Radiologic exam of the right knee. Views: 3 views. COMPARISON: CR XR KNEE RT 3V 09/29/2019 12:41 AM FINDINGS: Bones/joints: Moderate degenerative changes along the lateral aspect of the patellofemoral joint with joint space narrowing, subchondral sclerosis and mild flattening of the articular margins. Mild degenerative changes of the medial knee compartment. No fracture, dislocation or malalignment. Soft tissues: No significant joint effusion evident. IMPRESSION: Moderate degenerative changes most pronounced along lateral aspect of the patellofemoral joint
== END ==
PROVIDERS: PCP Family Medicine; Visit Provider Orthopaedic Surgery
DX: M25.561 Pain in right knee (principal); M25.562 Pain in left knee; M25.521 Pain in right elbow; M25.522 Pain in left elbow
CPT/HCPCS: 73080; 73562

== ENCOUNTER 2022-11-03 16:47 | Emergency (ER) | payer BC, SELFPAY ==
[2022-11-03 16:49] VITALS: BP 144/92; PULSE 82; RESP 18; TEMP 36.5; O2SAT 97; BMI 41.1
--- NOTE | 2022-11-03 17:01 | EXP.UTC ---
Discharge Plan Disposition Patient Disposition: Home, Self-Care Condition: Good Prescriptions Prescriptions: New benzonatate [benzonatate] 100 mg capsule 100 mg PO TIDP PRN (Reason: Cough) Qty: 30 0RF methylprednisolone 4 mg Tablets,Dose Pack 4 mg PO DIRECTED Qty: 21 0RF guaifenesin [Mucinex] 600 mg tablet extended release 12hr 600 - 1,200 mg PO BIDP PRN (Reason: Congestion) Qty: 30 0RF azithromycin [Zithromax] 250 mg tablet 250 mg PO UD DOSE PK Qty: 6 0RF Rx Instructions: Take two (2) tablets today, then one (1) tablet days #2 thru #5 No Action cholecalciferol (vitamin D3) 1,000 unit capsule 1,000 unit PO DAILY aspirin [Adult Low Dose Aspirin] 81 mg tablet,delayed release (DR/EC) 81 mg PO DAILY furosemide 40 mg tablet 40 mg PO DAILY Qty: 90 3RF lisinopril 5 mg tablet 5 mg PO DAILY Qty: 90 3RF spironolactone 50 mg tablet 50 mg PO DAILY Qty: 90 3RF omeprazole 40 mg capsule,delayed release(DR/EC) 40 mg PO DAILY Qty: 90 1RF fluticasone propionate [Flonase Allergy Relief] 50 mcg/actuation spray,suspension 2 spray intranasal DAILY Qty: 16 2RF Rx Instructions: administer into each nostril amoxicillin-pot clavulanate 875-125 mg tablet 1 tab PO BID 10 Days Qty: 20 0RF citalopram 40 mg tablet See Rx Instructions .ROUTE .COMPLEX Qty: 90 1RF Dose Instruction: TAKE ONE TABLET BY MOUTH EVERY DAY Rx Instructions: TAKE ONE TABLET BY MOUTH EVERY DAY Referrals Follow up/Referrals: Magda Valdez APRN [Primary Care Provider] - See instructions Activity Restrictions/Add. Instructions Additional Instructions/Restrictions: Drink plenty of fluids. Take tylenol or ibuprofen for pain or fever. Take the medications as directed. Follow up with your regular doctor. GO TO THE ER FOR ANY WORSENING SYMPTOMS Clinical Impressions Clinical Impression: Sinusitis Discharge ED Provider: Iggy Tobias [facility] [place] General Stated complaint: upper congestion Time Seen by Provider: 11/03/22 17:01 History of Present Illness Provider Complaint: She states that for the past 5 days she has had sinus congestion, cough, ear pain and sore throat. Related Data Home Medications Medication Instructions Recorded Confirmed aspirin 81 mg tablet,delayed 81 mg PO DAILY Heart disease 12/17/17 07/03/22 release (Adult Low Dose Aspirin) cholecalciferol (vitamin D3) 25 1,000 unit PO DAILY Supplement 12/17/17 07/03/22 mcg (1,000 unit) capsule Previous Rx's Medication Instructions Recorded furosemide 40 mg tablet 40 mg PO DAILY #90 tabs 01/16/22 lisinopril 5 mg tablet 5 mg PO DAILY bp #90 tabs 01/16/22 spironolactone 50 mg tablet 50 mg PO DAILY #90 tabs 01/16/22 fluticasone propionate 50 2 spray intranasal DAILY #16 grams 04/01/22 mcg/actuation nasal spray,suspension (Flonase Allergy Relief) omeprazole 40 mg capsule,delayed 40 mg PO DAILY #90 caps 04/01/22 release amoxicillin 875 mg-potassium 1 tab PO BID 10 days #20 tabs 04/18/22 clavulanate 125 mg tablet citalopram 40 mg tablet See Rx Instructions .Route 10/20/22 .COMPLEX #90 tabs azithromycin 250 mg tablet 250 mg PO UD DOSE PK #6 tabs 11/03/22 (Zithromax) benzonatate 100 mg capsule 100 mg PO TIDP PRN Cough #30 caps 11/03/22 guaifenesin 600 mg tablet, 600 - 1,200 mg PO BIDP PRN 11/03/22 extended release 12 hr (Mucinex) Congestion #30 tabs methylprednisolone 4 mg tablets in 4 mg PO DIRECTED #21 tabs 11/03/22 a dose pack Allergies Allergy/AdvReac Type Severity Reaction Status Date / Time Sulfa (Sulfonamide Allergy Verified 07/03/22 15:31 Antibiotics) [facility] Disclaimer: The information contained in this section may have been updated after the patient was seen, as this information can be updated by other users. Medical History Dyspnea Edema of both lower extremities Palpitations Patellar
[2022-11-03 17:19] VITALS: BP 144/92; PULSE 82; RESP 18; TEMP 36.5; O2SAT 97
== END 2022-11-03 17:21 | disposition home or self-care (01) ==
PROVIDERS: Emergency Provider Nurse Practitioner Family; PCP Nurse Practitioner Family
DX: J01.90 Acute sinusitis, unspecified (principal); H92.03 Otalgia, bilateral
CPT/HCPCS: 99212; 99214; G0463

== ENCOUNTER → 2023-01-15 01:10 | Outpatient (CLI) | payer BC, SELFPAY ==
[2023-01-15 14:33] LABS: Basophils # 0.1 K/mm3 (0-0.2); Basophils % 0.8 % (0.1-2.0); Eosinophils # 0.4 K/mm3 (0.0-0.4); Eosinophils % 6.3 % (0.1-12.0); Hematocrit 41.9 % (37.0-47.0); Hemoglobin 13.2 g/dL (12.2-16.2); Lymphocytes # 1.7 K/mm3 (0.7-4.5); Lymphocytes % 25.8 % (10-50); Mean Corpuscular HGB Conc 31.5 g/dL (31.8-35.4); Mean Corpuscular Hemoglobin 28.7 pg (27.0-31.2); Mean Corpuscular Volume 91.1 fl (81-99); Mean Platelet Volume 9.9 fl (7.4-10.4); Monocytes # 0.5 K/mm3 (0.1-1.0); Monocytes % 6.7 % (1.7-9.3); Neutrophils % 60.5 % (37.0-80.0); Platelet Count 325 K/mm3 (142-424); Red Cell Distribution Width 14.8 % (11.5-17.5); White Blood Count 6.7 K/mm3 (4.8-10.8)
[2023-01-15 16:44] LABS: Alanine Aminotransferase 31 U/L (12-78); Albumin Level 4.7 g/dl (3.5-5.0); Albumin/Globulin Ratio 1.6 (1.1-1.8); Alkaline Phosphatase 84 U/L (38-126); Anion Gap 12.9 mEq/L (5-15); Aspartate Amino Transferase 34 U/L (14-36); Bilirubin,Total 0.6 mg/dl (0.2-1.3); Blood Urea Nitrogen 15 mg/dl (7-17); Calcium 9.5 mg/dl (8.4-10.2); Carbon Dioxide 28 mmol/L (22.0-30.0); Chloride 105 mmol/L (98-107); Chol/HDL Ratio 2.7 (1-3.5); Cholesterol 212 mg/dl (140-200); Estimated Glomerular Filt Rate 64 ml/min (>60); GFR (African American) 77 ML/MIN (>60); Glucose 81 mg/dl (74-100); HDL Cholesterol 78 mg/dl (40-60); Potassium 4.9 mmoL/L (3.5-5.1); Sodium 141 mmol/L (136-145); Total Protein,Serum 7.7 g/dl (6.3-8.2); Triglycerides 68 mg/dl (30-150); VLDL Cholesterol 14 mg/dL (0-40)
[2023-01-15 16:55] LABS: Direct LDL Cholesterol 101.39 mg/dL (100-129)
[2023-01-15 17:07] LABS: Free T4 (Free Thyroxine) 1.11 ng/dl (0.78-2.19)
[2023-01-15 17:14] LABS: Thyroid Stimulating Hormone 1.34 uIU/mL (0.465-4.68)
[2023-01-15 18:27] LABS: Hemoglobin A1C 5.3 % (4.0-6.0)
== END ==
PROVIDERS: PCP Internal Medicine; Visit Provider Internal Medicine
DX: Z00.00 Encounter for general adult medical examination without abnormal findings (principal); Z13.1 Encounter for screening for diabetes mellitus; Z13.29 Encounter for screening for other suspected endocrine disorder; Z13.220 Encounter for screening for lipoid disorders; Z13.21 Encounter for screening for nutritional disorder; E66.9 Obesity, unspecified; Z68.39 Body mass index [BMI] 39.0-39.9, adult; Z79.899 Other long term (current) drug therapy
CPT/HCPCS: 80053; 80061; 82306; 83036; 84439; 84443; 85025

== ENCOUNTER 2023-05-26 12:14 | Outpatient (CLI) | payer BC, SELFPAY ==
--- NOTE | 2023-05-26 12:15 | MM_ITS ---
PROCEDURE INFORMATION: Exam: MG Bilateral Screening 3D Mammography Exam date and time: 05/26/2023 12:19 PM Age: 62 years old Clinical indication: Screening mammogram TECHNIQUE: Imaging protocol: Bilateral Screening tomosynthesis and 2D mammography including computer-aided detection (CAD) when performed. COMPARISON: 1. [facility] DIG SCREENING MAMM BI W/CAD 02/18/2022 10:30 AM 2. MG [facility] [place] DIGITAL SCREEN BILATERAL 01/02/2021 11:17 AM 3. MG [facility] [place] DIGITAL SCREEN BILATERAL 09/15/2018 8:07 AM FINDINGS: MAMMOGRAPHY: Breast composition: There are scattered areas of fibroglandular density. Mass: 1.2 cm mass within the upper outer left middle 1/3 should be further assessed with spot views in CC/MLO projection. Ultrasound should also be performed. Architectural distortion: No new or suspicious architectural distortion. Calcifications: No new or suspicious calcifications are present Asymmetric density: No new or suspicious asymmetric density is present Skin thickening: None. Axillary adenopathy: None. IMPRESSION: 1.2 cm mass within the upper outer left middle 1/3 should be further assessed with spot views in CC/MLO projection. Ultrasound should also be performed. ASSESSMENT: BI-RADS category 0: Incomplete-need additional imaging evaluation
== END 2023-05-26 23:59 ==
LOC: RAD 12:15
PROVIDERS: PCP Internal Medicine; Visit Provider Internal Medicine
DX: Z12.31 Encounter for screening mammogram for malignant neoplasm of breast (principal)
CPT/HCPCS: 77063; 77067

== ENCOUNTER 2023-06-10 14:25 | Outpatient (CLI) | payer BC, SELFPAY ==
--- NOTE | 2023-06-10 14:26 | MM_ITS ---
PROCEDURE INFORMATION: Exam: US Left Breast, Complete MG Left Diagnostic Breast Tomosynthesis Exam date and time: 06/10/2023 2:29 PM Age: 62 years old Clinical indication: Patient recalled on the basis of a screening mammogram for further evaluation; Left breast; mass TECHNIQUE: Imaging protocol: Complete ultrasound of all four quadrants of the left breast and the retroareolar regions, including ultrasound of the axilla when performed. Left Diagnostic tomosynthesis and 2D mammography including computer-aided detection (CAD) when performed. Unilateral or bilateral exam. COMPARISON: 1. [facility] MM DIG SCREENING MAMM BI W/CAD 05/26/2023 12:19 PM 2. MG MM DIG SCREENING MAMM BI W/CAD 02/18/2022 10:30 AM FINDINGS: MAMMOGRAPHY: Digital diagnostic spot compression views of the left breast and 90 degree lateral view of the left breast demonstrate normal overlapping fibroglandular structures without persistent mass or asymmetry identified. ULTRASOUND: Sonographic images of the left breast including the retroareolar region, all 4 quadrants and the axilla do not demonstrate any solid or cystic masses with the exception of an incidental subcutaneous subcentimeter lipoma. No architectural distortion or acoustical shadowing. No skin thickening or axillary adenopathy. IMPRESSION: No mammographic or sonographic evidence of malignancy. Annual bilateral mammographic screening is recommended unless otherwise clinically indicated. ASSESSMENT: BI-RADS Category 1: Negative.
== END 2023-06-10 23:59 ==
LOC: RAD 14:26
PROVIDERS: PCP Internal Medicine; Visit Provider Obstetrics & Gynecology
DX: N63.20 Unspecified lump in the left breast, unspecified quadrant (principal); R92.8 Other abnormal and inconclusive findings on diagnostic imaging of breast
CPT/HCPCS: 76641; 77061; 77065; G0279

== ENCOUNTER 2023-10-14 09:23 | Outpatient (CLI) | payer BC, SELFPAY ==
[2023-10-14 09:52] LABS: Basophils # 0.1 K/mm3 (0-0.2); Basophils % 1.2 % (0.1-2.0); Eosinophils # 0.3 K/mm3 (0.0-0.4); Eosinophils % 4.7 % (0.1-12.0); Hematocrit 26.1 % (37.0-47.0); Hemoglobin 8.1 g/dL (12.2-16.2); Lymphocytes # 1.4 K/mm3 (0.7-4.5); Lymphocytes % 25.5 % (10-50); Mean Corpuscular HGB Conc 31.1 g/dL (31.8-35.4); Mean Corpuscular Hemoglobin 23.5 pg (27.0-31.2); Mean Corpuscular Volume 75.5 fl (81-99); Mean Platelet Volume 7.7 fl (7.4-10.4); Monocytes # 0.4 K/mm3 (0.1-1.0); Monocytes % 6.5 % (1.7-9.3); Neutrophils # 3.5 K/mm3 (1.8-7.8); Neutrophils % 62.1 % (37.0-80.0); Platelet Count 404 K/mm3 (142-424); Red Blood Count 3.46 M/mm3 (4.20-5.40); Red Cell Distribution Width 16.3 % (11.5-17.5); White Blood Count 5.6 K/mm3 (4.8-10.8)
[2023-10-14 10:31] LABS: Alanine Aminotransferase 19 U/L (12-78); Alkaline Phosphatase 68 U/L (38-126); Anion Gap 12.6 mEq/L (5-15); Aspartate Amino Transferase 22 U/L (14-36); Bilirubin,Indirect 0.3 mg/dL (0.0-0.9); Bilirubin,Total 0.3 mg/dl (0.2-1.3); Bilirubin,Unconjugated 0.5 mg/dL (0.0-1.1); Blood Urea Nitrogen 17 mg/dl (7-17); Calcium 9.3 mg/dl (8.4-10.2); Carbon Dioxide 25 mmol/L (22.0-30.0); Chloride 106 mmol/L (98-107); Chol/HDL Ratio 2.5 (1-3.5); Cholesterol 175 mg/dl (140-200); Estimated Glomerular Filt Rate 56 ml/min (>60); GFR (African American) 68 ML/MIN (>60); Glucose 89 mg/dl (74-100); HDL Cholesterol 69 mg/dl (40-60); Magnesium 1.9 mg/dl (1.6-2.3); Potassium 4.6 mmoL/L (3.5-5.1); Sodium 139 mmol/L (136-145); Total Protein,Serum 6.6 g/dl (6.3-8.2); Triglycerides 50 mg/dl (30-150); VLDL Cholesterol 10 mg/dL (0-40)
[2023-10-14 10:41] LABS: Direct LDL Cholesterol 73.38 mg/dL (100-129)
[2023-10-14 10:46] LABS: Free T4 (Free Thyroxine) 0.95 ng/dl (0.78-2.19)
== END 2023-10-14 23:59 | disposition home or self-care (01) ==
PROVIDERS: PCP Obstetrics & Gynecology; Visit Provider Physician Assistant
DX: R06.02 Shortness of breath (principal); I51.89 Other ill-defined heart diseases; R00.0 Tachycardia, unspecified
CPT/HCPCS: 36415; 80048; 80061; 80076; 83735; 84439; 84443; 85025; 93225; 93227

== ENCOUNTER 2023-10-30 14:40 | Outpatient (CLI) | payer BC, SELFPAY ==
--- NOTE | 2023-10-30 14:50 | XR_ITS ---
FINAL REPORT CLINICAL HISTORY: right lateral ankle pain, swelling FINDINGS: AP, oblique, and lateral views of the right ankle were obtained. There is no prior exam for comparison. There is no fracture or dislocation. The ankle mortise is intact. There is soft tissue edema, worse laterally. IMPRESSION: Soft tissue edema without acute bony abnormality. Reviewed, Interpreted and Dictated by Emily Hood MD Transcribed by Sonia Sullivan Authenticated and [facility]
--- NOTE | 2023-10-30 14:58 | CA_ITS ---
APPROVED REPORT EXAM: Comprehensive 2D, Doppler, and color-flow Echocardiogram Call Or Contact Centre Operator: Deidre Quintana RVT Ht: 5 ft 4 in Wt: 240lbs BSA: 2.11 BP: 116/72 mmHg Indications: PALPS,DYSPENA,HX SVT,HX ABLATION 2021,EX SMOKER,FATIGUE,EDEMA 2D Dimensions LA Volume 50.60 mL LA Volume Index 23.87 mL/m2 (M/F) 16-34 M-Mode Dimensions RVDd 2.24 cm (0.9-2.6) LA Diam 3.26 cm (1.9-4.0) LVDd 4.59 cm (3.5-5.7) LVDs 2.96 cm (3.5-5.7) IVSd 0.68 cm (0.6-1.1) PWd 0.57 cm (0.6-1.1) EF (Teich) 65.00% FS 35.50% EDV (Teich) 96.80 mL TAPSE 3.06 (<1.7) ESV (Teich) 33.90 mL LV Diastology E Decel Time 230 (160-240 msec) E/A Ratio 0.9 Aortic Valve BENOIT Index 0.88 cm2/m2 AoV Peak Magdiel. 163.0 (50-130 cm/s) AO Peak GR. 10.70 mmHg AO Mean GR. 6.80 (<5 mmHg) AO VTI 32.3 (18-25 cm) BENOIT (VTI) 1.90 (2.5-4.5 cm2) Mitral Valve MV E Max Magdiel. 101.0 (40-130 cm/s) MV A Velocity 109.0 (40-130 cm/s) E/A Ratio 0.92 MV PHT 67.0 ms Pulmonary Valve PV Peak Velocity 127.0 (50-150 cm/s) Tricuspid Valve TR P. Velocity 224.00 cm/s RAP Estimate 10.00 mmHg RVSP 30.10 mmHg Left Ventricle The left ventricle is normal size. The left ventricular systolic function is normal. The left ventricular ejection fraction is within the normal range. There is normal left ventricular wall thickness. There is normal LV segmental wall motion. The left ventricular diastolic function is normal. LVEF is 55%. Right Ventricle Right ventricle is mildly dilated. The right ventricular systolic function is normal. Atria The left atrium size is normal. The right atrium size is normal. There is no Doppler evidence of interatrial shunt. Aortic Valve The aortic valve opens well There is no aortic valvular stenosis. No aortic regurgitation is present. Mitral Valve The mitral valve is normal in structure. No evidence of mitral valve stenosis. Trace mitral valve regurgitation noted. Tricuspid Valve The tricuspid valve leaflets are thin and pliable. Mild tricuspid regurgitation. RVSP is 20-25 mmHg. Pulmonic Valve The pulmonary valve is normal in structure. Trace pulmonic regurgitation. Great Vessels The aortic root is normal in size. The ascending aorta is normal in size. IVC is normal in size and collapses >50% with inspiration. Pericardium There is no pericardial effusion. Other Information Study Quality: Fair Conclusion Normal biventricular systolic function. Mild RV dilation. Mild TR. Electronically signed by : Dorys Lott MD 11/02/2023 14:50:35
== END 2023-10-30 23:59 | disposition home or self-care (01) ==
LOC: RT 14:42
PROVIDERS: PCP Internal Medicine; Visit Provider Physician Assistant
DX: I51.89 Other ill-defined heart diseases (principal); R00.0 Tachycardia, unspecified; R06.02 Shortness of breath; M25.571 Pain in right ankle and joints of right foot; M25.471 Effusion, right ankle
CPT/HCPCS: 73610; 93306

== ENCOUNTER 2023-11-13 14:19 | Outpatient (CLI) | payer BC, SELFPAY ==
[2023-11-13 14:56] LABS: Basophils # 0.1 K/mm3 (0-0.2); Basophils % 0.8 % (0.1-2.0); Eosinophils # 0.4 K/mm3 (0.0-0.4); Eosinophils % 5.5 % (0.1-12.0); Hematocrit 35.9 % (37.0-47.0); Hemoglobin 11.3 g/dL (12.2-16.2); Lymphocytes # 1.6 K/mm3 (0.7-4.5); Lymphocytes % 24.8 % (10-50); Mean Corpuscular HGB Conc 31.4 g/dL (31.8-35.4); Mean Corpuscular Hemoglobin 26.6 pg (27.0-31.2); Mean Corpuscular Volume 84.7 fl (81-99); Mean Platelet Volume 8.5 fl (7.4-10.4); Monocytes # 0.4 K/mm3 (0.1-1.0); Monocytes % 5.6 % (1.7-9.3); Neutrophils # 4.1 K/mm3 (1.8-7.8); Neutrophils % 63.3 % (37.0-80.0); Platelet Count 298 K/mm3 (142-424); Red Blood Count 4.25 M/mm3 (4.20-5.40); Red Cell Distribution Width 21.1 % (11.5-17.5); White Blood Count 6.5 K/mm3 (4.8-10.8)
[2023-11-13 15:33] LABS: Iron 49 ug/dL (37-170)
[2023-11-13 15:42] LABS: Total Iron Binding Capacity 390 ug/dL (265-497)
[2023-11-13 16:09] LABS: Ferritin 22.4 ng/ml (11.1-264)
== END 2023-11-13 23:59 | disposition home or self-care (01) ==
LOC: LAB 14:20
PROVIDERS: Physician Assistant; PCP Internal Medicine; Visit Provider Internal Medicine Medical Oncology
DX: D50.9 Iron deficiency anemia, unspecified (principal)
CPT/HCPCS: 36415; 82728; 83540; 83550; 85025

== ENCOUNTER 2023-12-16 13:00 | Outpatient (RCR) | payer BC, SELFPAY ==
--- NOTE | 2023-12-09 18:08 | HMH.PTOPEV ---
PT Outpatient Evaluation Rehab PT Outpatient Evaluation Start: 12/09/23 16:53 Freq: Status: Active Protocol: Document 12/09/23 16:53 LETICIA (Rec: 12/09/23 18:07 LETICIA [id number]) E-signed By Asya Aguero, PT Outpatient Therapy Subjective History Subjective History Pt is a 63 y/o female who reports insidious onset of right lateral ankle pain months ago. Pt denies known trauma or injury. 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 Pt also states she has to wear steel toed boots at work. Pt had a right ankle radiograph on 10/29 with impression of Soft tissue edema without acute bony abnormality. Pt reports noted swelling of the right lateral ankle and pain that is random in nature occurring at different times during weightbearing activities and improves with rest. Pt reports pain feels like a tight, pulling sensation. Pt denies numbness/tingling but states she did experience a burning sensation at work today for the first time. Pt reports her ankle is hypersensitive to light touch. Pt reports history of fracture of the L distal fibula due to falling without surgical repair. Medical History: Hypertension, CHF, Shortness of breath, Sinusitis, Sinus tachycardia, Edema of both lower extremities, Palpitations, Dyspnea R ankle edema: figure 8: 60cm, malleoli: 29.5cm New diagnosis of cancer in past 12 No months? Chief Complaint Pain,Swelling Symptom Type Ache,Dull,Burning Symptoms Relieved By Rest/Positioning Symptoms Aggravated By Standing,Physical Activity, Walking Current Functional Limitations Standing,Walking,Stairs Symptom Description Intermittent Level of pain today (0-10) 0 Pain scale - at its best (0-10) 0 Pain scale - at its worst (0-10) 10 Ankle/Foot Eval Gait Observation General Gait Pattern Observation Antalgic Gait,Decrease Weight Bear (R) Assistive Device Ambulation Assistive Device None Palpation Tenderness right Ankle/Foot Palpation Findings Tenderness Ankle/Foot Palpation Overall Comment ATFL, peroneal tt, lateral malleoli 3/4 TTP ATF TTP positive ROM Ankle/Foot Dorsiflexion w/Knee Flexed 5 Active Range of Motion (degrees) Ankle/Foot Plantar Flexion Active Range 40 of Motion (degrees) Ankle/Foot Eversion Active Range of 12 Motion (degrees) Ankle/Foot Inversion Active Range of 30 Motion (degrees) MMT Ankle Dorsiflexion Strength Grade 4 Good Ankle Plantarflexion Strength Grade 4- Good- Foot Eversion Strength Grade 3+ Fair+ Foot Inversion Strength Grade 4- Good- Special Tests Ankle Anterior Drawer Test Negative Right Talar Tilt Test Positive Right Foot/Heel Tap/Percussion Test Negative Right Lower Extremity Functional Index Activities Today, do you or would you have any difficulty at all with: a.Any of your usual work, housework or No difficulty school activities b. Your usual hobbies, recreational or No difficulty sporting activities c. Getting into or out of the bath No difficulty d. Walking between rooms A little bit of difficulty e. Putting on your shoes or socks Extreme difficulty or unable to perform activity f. Squatting No difficulty g. Lifting an object, like a bag of No difficulty groceries from the floor h. Performing light activities around No difficulty your home i. Performing heavy activities around A little bit of difficulty your home j. Getting into or out of a car Quite a bit of difficulty k. Walking 2 blocks Extreme difficulty or unable to perform activity l. Walking a mile Extreme difficulty or unable to perform activity m. Going up or down 10 stairs (about 1 Extreme difficulty or unable flight of stairs) to perform activity n. Standing for 1 hour Extreme difficulty or unable to perform activity o. Sitting for 1 hour No difficulty p. Running on even ground Extreme difficulty or unable to perform activity q. Running on uneven ground Extreme difficulty or unable to perform activity r. Making sharp turns while running fast Extreme difficulty or unable to perform activity s. Hopping Extreme difficulty or unable to perform activity t. Rolling over in bed No difficulty LEFI Score Lower Extremity Functional Index Score 39 Outpatient Therapy Assessment Impairments Problems/Impairmments Palpation Tenderness,Impaired Range of Motion,Impaired Strength,Impaired Gait Pattern ,Impaired Walking,Impaired Standing,Impaired Stair Climbing,Impaired Incline Stepping,Impaired Stepping on Uneven Surface,Impaired Work Activities,Impaired Balance, Increased Edema,Subjective C/O Pain,Impaired Self Care/Self Management Prognosis Rehab Potential Good Clinical Impression Consistent with Diagnosis Yes Consistent with also peroneal tendinopathy Short Term Goals Number of Weeks 3 Improve LEFI Score Yes: report ability to work a half shift with pain 8/10 or less Decrease Edema Yes Decrease Subjective C/O Pain Yes: Improve pain at worst to 8/10 to improve overall QOL Improve Self Care/Self Management Yes Patient to be Ind w/ HEP Yes Long-Term Goals Number of Weeks 6 Decreased Palpation Tenderness Yes: 0-1/4 TTP of lateral ankle complex Increase Range of Motion Yes: Improve R ankle AROM to WNL Increase Strength Yes: Improve R ankle MMT to 4+ /5 grossly to assist with function Improve Gait Pattern without Assistive Yes: non-antalgic to decrease Device fall risk Improve Tolerance to Work Activities Yes: report ability to work a full shift with pain 6/10 or less Improve LEFI Score Yes: Improve score to at least 50/80 to improve overall QOL Decrease Subjective C/O Pain Yes: Improve pain at worst to 6/10 to improve overall QOL Outpatient Therapy Plan of Care Treatment Plan May Include Therapeutic Exercise Including Home Yes Exercise Program Manual Therapy Techniques Yes Neuromuscular Re-education Yes Therapeutic Activities to Return to Yes Previous Functional/Work Level Gait Training Yes ADL/Self Care Education Yes Dry Needling Yes Thermal Modalities Yes Electrical Stimulation Yes Ultrasound/Phonophoresis Yes Iontophoresis Yes Orthotics/Bracing/Splinting Yes Vasopneumatic Compression Pump Yes Massage Yes Manual Lymphatic Drainage Yes Eval/Re-Eval Yes Frequency Times per week 2 Duration Number of Weeks 4-6 Addendums This patient is a candidate for social No or vocational rehab? Patient/Guardian verbally acknowledges Yes understanding of treatment program and consents to further treatment? Patient/Guardian verbally acknowledges Yes understanding of diagnosis, prognosis and goals for treatment? Eval Complexity PT Charges 75349 - Moderate Complexity Shoulder/Elbow Eval Shoulder Objective Measurements Elbow Objective Measurements PHYSICIAN CERTIFICATION: I certify the specified therapy services for Melody Denis are required, authorized, and reviewed every 30 days.
== END 2023-12-16 13:05 | disposition home or self-care (01) ==
LOC: PT 13:00
PROVIDERS: Visit Provider Physician Assistant
DX: M25.571 Pain in right ankle and joints of right foot (principal); G89.29 Other chronic pain
CPT/HCPCS: 97014; 97016; 97035; 97110; 97163; G0283

== ENCOUNTER 2024-01-08 12:27 | Outpatient (CLI) | payer BC, SELFPAY | END 2024-01-08 23:59 | disposition home or self-care (01) | PROVIDERS: PCP Physician Assistant; Visit Provider Physician Assistant | DX: M25.571 Pain in right ankle and joints of right foot (principal) ==

== ENCOUNTER 2024-01-19 16:47 | Outpatient (CLI) | payer BC, SELFPAY ==
--- NOTE | 2024-01-19 16:48 | MR_ITS ---
PROCEDURE INFORMATION: Exam: MR Right Lower Extremity Joint Without Contrast; Ankle Exam date and time: 01/19/2024 4:52 PM Age: 63 years old Clinical indication: Patient HX: Lateral right ankle pain for months TECHNIQUE: Imaging protocol: Magnetic resonance imaging of the right lower extremity without contrast. Exam focused on the ankle. COMPARISON: CR XR ANKLE WT BEARING RT MIN 3V 10/30/2023 2:51 PM FINDINGS: Bones/joints: Peroneal tubercle bone marrow edema. Calcaneal plantar and Achilles enthesopathy. Articular cartilage is normal. No joint effusion. LIGAMENTS: Distal tibiofibular syndesmosis: Unremarkable. No tear. Anterior talofibular ligament: Unremarkable. No tear. Posterior talofibular ligament: Unremarkable. No tear. Calcaneofibular ligament: Unremarkable. No tear. Deltoid ligament complex: Unremarkable. No tear. TENDONS: Flexor tendons of foot: Unremarkable as visualized. Tibialis posterior tendon: Unremarkable as visualized. Peroneal tendons: Fluid within the peroneus brevis and longus tendon sheaths and mild peritendinous edema. Intermediate signal within and mildly thickened peroneus longus tendon proximal to the cubital tunnel. Extensor tendons of foot: Unremarkable as visualized. Tibialis anterior tendon: Unremarkable as visualized. Achilles tendon: Unremarkable as visualized. Tarsal canal (Sinus tarsi): Unremarkable. Normal signal of the fat. Tarsal tunnel: Unremarkable. Soft tissues: Unremarkable. Plantar fascia: Thickening of the central cord without tear. IMPRESSION: Peroneal tenosynovitis. 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 Peroneal tubercle bone marrow edema.
== END 2024-01-19 23:59 | disposition home or self-care (01) ==
LOC: RAD 16:48
PROVIDERS: PCP Internal Medicine; Visit Provider Physician Assistant
DX: M25.571 Pain in right ankle and joints of right foot (principal)
CPT/HCPCS: 73721

== ENCOUNTER 2024-05-19 15:16 | Outpatient (CLI) | payer BC, SELFPAY ==
[2024-05-19 15:30] LABS: Basophils # 0.1 K/mm3 (0-0.2); Basophils % 1.3 % (0.1-2.0); Eosinophils # 0.3 K/mm3 (0.0-0.4); Eosinophils % 3.9 % (0.1-12.0); Hemoglobin 12.8 g/dL (12.2-16.2); Lymphocytes # 1.8 K/mm3 (0.7-4.5); Lymphocytes % 26.3 % (10-50); Mean Corpuscular Hemoglobin 29.7 pg (27.0-31.2); Mean Corpuscular Volume 92.8 fl (81-99); Monocytes # 0.7 K/mm3 (0.1-1.0); Monocytes % 10.6 % (1.7-9.3); Neutrophils % 57.6 % (37.0-80.0); Platelet Count 305 K/mm3 (142-424); Red Blood Count 4.31 M/mm3 (4.20-5.40); Red Cell Distribution Width 13.2 % (11.5-17.5)
[2024-05-19 15:54] LABS: Albumin Level 4.8 g/dl (3.5-5.0); Chloride 104 mmol/L (98-107); Potassium 4.5 mmoL/L (3.5-5.1); Sodium 140 mmol/L (136-145)
[2024-05-19 15:56] LABS: Blood Urea Nitrogen 21 mg/dl (7-17); Estimated Glomerular Filt Rate 64 ml/min (>60); GFR (African American) 77 ML/MIN (>60)
[2024-05-19 15:57] LABS: Alanine Aminotransferase 30 U/L (12-78); Alkaline Phosphatase 77 U/L (38-126); Anion Gap 12.5 mEq/L (5-15); Aspartate Amino Transferase 28 U/L (14-36); Bilirubin,Direct 0.1 mg/dl (0.0-0.4); Bilirubin,Indirect 0.1 mg/dL (0.0-0.9); Bilirubin,Total 0.2 mg/dl (0.2-1.3); Bilirubin,Unconjugated 0.2 mg/dL (0.0-1.1); Calcium 9.8 mg/dl (8.4-10.2); Carbon Dioxide 28 mmol/L (22.0-30.0); Cholesterol 221 mg/dl (140-200); Glucose 96 mg/dl (74-100); Iron 87 ug/dL (37-170); Total Protein,Serum 7.3 g/dl (6.3-8.2); Triglycerides 97 mg/dl (30-150); VLDL Cholesterol 19 mg/dL (0-40)
[2024-05-19 15:58] LABS: Chol/HDL Ratio 2.1 (1-3.5); HDL Cholesterol 105 mg/dl (40-60)
[2024-05-19 16:09] LABS: Direct LDL Cholesterol 86.64 mg/dL (100-129)
[2024-05-19 16:13] LABS: Total Iron Binding Capacity 387 ug/dL (265-497)
[2024-05-19 16:33] LABS: Thyroid Stimulating Hormone 2.72 uIU/mL (0.465-4.68)
[2024-05-19 16:37] LABS: Ferritin 18.8 ng/ml (11.1-264)
== END 2024-05-19 23:59 | disposition home or self-care (01) ==
LOC: LAB 15:17
PROVIDERS: PCP Internal Medicine; Visit Provider Physician Assistant
DX: I51.89 Other ill-defined heart diseases (principal); I50.9 Heart failure, unspecified; K21.9 Gastro-esophageal reflux disease without esophagitis; G47.33 Obstructive sleep apnea (adult) (pediatric); E66.9 Obesity, unspecified; D50.8 Other iron deficiency anemias; I10 Essential (primary) hypertension
CPT/HCPCS: 36415; 80048; 80061; 80076; 82728; 83540; 83550; 83735; 84439; 84443; 85025

== ENCOUNTER 2024-09-08 07:48 | Day surgery (SDC) | payer SELFPAY ==
[2024-09-07 14:18] VITALS: BMI 41.8
--- NOTE | 2024-09-08 08:56 | P.PNANES_ITS ---
[facility] Disclaimer: The information contained in this section may have been updated after the patient was seen, as this information can be updated by other users. Medical History (Updated 09/07/24 @ 14:15 by Anastasia Meléndez RN) Sinusitis Sinus tachycardia Edema of both lower extremities Palpitations Patellar fracture Surgical History (Updated 09/07/24 @ 14:15 by Anastasia Meléndez RN) History of oophorectomy History of salpingectomy H/O discectomy H/O hand surgery History of cholecystectomy H/O section H/O colonoscopy with polypectomy S/P ablation of ventricular arrhythmia Family History Mother Diabetes Hypertension Social History (Updated 09/07/24 @ 14:16 by Anastasia Meléndez RN) Smoking Status: Former smoker second hand exposure: No alcohol intake: current alcohol intake frequency: holidays/special occasions only substance use type: denies use current occupational status: employed Travel in the last 8 weeks?: Inside the [place] household members: spouse and children housing: house current occupation: [employer] caffeine: Yes Have you lived/traveled outside [place] in past 30 days?: No Contact w/someone who lives/traveled outside [place] past 30 days?: No Exposure to someone with infectious disease in past 14 days?: No Do you have a fever (greater than 100.4 F or 38 C)?: No Have you tested positive for COVID-19?: No Exposed to someone with COVID-19 in past 14 days?: No Do you have a sore throat?: No Do you have a cough?: No Do you have any weakness?: No Are you experiencing any nausea/vomitting?: No Do you have any diarrhea?: No Are you experiencing any unusual bleeding?: No Do you have any muscle aches/pain?: No Do you have any abdominal pain?: No Are you experiencing loss of taste or smell?: No [facility] Anesthesia Checklist Patient Identification Patient Identification: Arm Band and Verbal (Name & ) Structural Data Admitted From: Home Planned Operative Procedure/s: colonoscopy Verified Documents: Surgical Consent NPO Status Verified Time NPO: 00:00 Chart Verification Results Verified: None Additional verifications Anesthesia Reactions: No Hx Blood Transfusions: No Blood Transfusion Reaction: No Airway Assessment Mallampati Score:: Class II C-Spine Mobility Assessed: Yes TMJ Mobility Assessed: Yes Dentition: Good Dentition Neurological Assessment Level of Consciousness: Awake, Alert and Appropriate Hx Seizures: No Numbness or tingling in extremities: Yes (carpal tunnel symptoms per patient) Anesthesia Plan Anesthesia Risk discussed: Yes Anesthesia Plan: Verified ASA Class: II Anesthesia Type: MAC
[2024-09-08 09:01] VITALS: BP 124/78; PULSE 76; RESP 16; TEMP 36.6; O2SAT 99
[2024-09-08 09:12] VITALS: BMI 41.8
--- NOTE | 2024-09-08 09:41 | EXP.HP ---
History of Present Illness *Admission Date: 09/08/24 *Reason for visit:: Personal history of colon polyps/adenomatous polyps *History of present illness: Mrs. Denis is a 63-year-old female who is here for surveillance colonoscopy secondary to a personal history of adenomatous colon polyps. The examination is deemed medically necessary for surveillance colonoscopy. The patient has been seen, interviewed and examined prior to the procedure by both myself and the anesthesia provider. [facility] Disclaimer: The information contained in this section may have been updated after the patient was seen, as this information can be updated by other users. Medical History (Updated 09/08/24 @ 09:43 by Naseem Babb II, MD) Sinusitis Sinus tachycardia Edema of both lower extremities Palpitations Patellar fracture Surgical History (Updated 09/07/24 @ 14:15 by Anastasia Meléndez RN) History of oophorectomy History of salpingectomy H/O discectomy H/O hand surgery History of cholecystectomy H/O section H/O colonoscopy with polypectomy S/P ablation of ventricular arrhythmia Family History Mother Diabetes Hypertension Social History (Updated 09/07/24 @ 14:16 by Anastasia Meléndez RN) Smoking Status: Former smoker second hand exposure: No alcohol intake: current alcohol intake frequency: holidays/special occasions only substance use type: denies use current occupational status: employed Travel in the last 8 weeks?: Inside the [place] household members: spouse and children housing: house current occupation: [employer] caffeine: Yes Have you lived/traveled outside [place] in past 30 days?: No Contact w/someone who lives/traveled outside [place] past 30 days?: No Exposure to someone with infectious disease in past 14 days?: No Do you have a fever (greater than 100.4 F or 38 C)?: No Have you tested positive for COVID-19?: No Exposed to someone with COVID-19 in past 14 days?: No Do you have a sore throat?: No Do you have a cough?: No Do you have any weakness?: No Are you experiencing any nausea/vomitting?: No Do you have any diarrhea?: No Are you experiencing any unusual bleeding?: No Do you have any muscle aches/pain?: No Do you have any abdominal pain?: No Are you experiencing loss of taste or smell?: No Other Medical History Have you received the Flu Vaccine for this season: No Have you received the Pneumonia Vaccine: No Review of Systems Review of Systems Review of systems (narrative): Negative *Cardiovascular Comments: Negative *Gastrointestinal Comments: Negative *Genitourinary Comments: Negative *Musculoskeletal Comments: Negative *Neurologic Comments: Negative Meds Home Medications and Allergies Home Medications ?Medication ?Instructions ?Recorded ?Confirmed ?Type aspirin 81 mg tablet,delayed 81 mg PO DAILY Heart disease 12/17/17 05/19/24 History release (Adult Low Dose Aspirin) cholecalciferol (vitamin D3) 25 1,000 unit PO DAILY Supplement 12/17/17 05/19/24 History mcg (1,000 unit) capsule ferrous sulfate 325 mg (65 mg 325 mg PO DAILY 10/30/23 09/08/24 History iron) tablet (FeroSul) citalopram 40 mg tablet See Rx Instructions .Route 02/26/24 09/08/24 Rx .COMPLEX #90 tabs furosemide 40 mg tablet 40 mg PO DAILY #90 tabs 02/26/24 09/08/24 Rx lisinopril 5 mg tablet 5 mg PO DAILY bp #90 tabs 02/26/24 09/08/24 Rx omeprazole 40 mg capsule,delayed 40 mg PO DAILY #90 caps 02/26/24 09/08/24 Rx release spironolactone 50 mg tablet 50 mg PO DAILY #90 tabs 02/26/24 09/08/24 Rx bupropion HCl 150 mg tablet,12 hr See Rx Instructions .Route 06/28/24 Rx sustained-release .COMPLEX #60 tabs sodium,potassium,mag sulfates 17.5 See Rx Instructions PO .COMPLEX 08/25/24 09/08/24 Rx gram-3.13 gram-1.6 gram oral soln #354 mL (Suprep Bowel Prep Kit) New Prescriptions to Start Prescriptions: Allergies Allergy/AdvReac Type Severity Reaction Status Date / Time Sulfa (Sulfonamide Allergy Other Verified 09/08/24 09:16 Antibiotics) Exam Data for Last 24 hours Vital signs and Labs for Last 24 Hours: Temp Pulse Resp BP Pulse Ox O2 Del Method 97.8 F 76 16 124/78 99 Room Air 09/08/24 09:01 09/08/24 09:01 09/08/24 09:01 09/08/24 09:01 09/08/24 09:01 09/08/24 09:01 I & O for Last 24 hours: Intake & Output 09/05/24 09/06/24 09/07/24 09/08/24 23:59 23:59 23:59 23:59 Weight 244 lb 244 lb *Routine HEENT Exam Head: Present normocephalic Eye: Present EOMI and PERRL ENT: Present mucous membranes moist *Routine Neck Exam Neck: Present supple *Routine Respiratory Exam Respiratory: Present CTA bilaterally *Routine Cardiovascular Exam Cardiovascular: Present RRR *Routine Abdominal Exam Abdominal: Present soft and normoactive bowel sounds; Absent tenderness *Routine Rectal Exam Rectal:: deferred *Routine Genitalia Exam Genitalia:: deferred *Routine Extremities Exam Extremities: Absent cyanosis, clubbing or edema *Routine Skin Exam Skin: Present warm; Absent rash *Routine Neurological Exam Neurological: Present alert and oriented X3 Assessment and Plan *Assessment and plan (1) Personal history of adenomatous and serrated colon polyps: Status: Acute Category: Medical Code(s): Z86.0101 - Personal history of adenomatous and serrated colon polyps Plan A/P: 1. Personal history of adenomatous colon polyps is the preprocedural diagnosis. The patient will be anesthetized/sedated using MAC sedation. The patient has been seen and examined. Cardiac and lung assessment prior to the examination is stable. Proceed with planned surveillance colonoscopy.
--- NOTE | 2024-09-08 09:43 | P.PCN_ITS ---
[facility] Procedure Note Date: 09/08/24 Time: 10:05 Procedure Note:: Colonoscopy Procedure Report: Colonoscopy with cold snare polypectomy Endoscopist: Naseem Babb II, MD Referring physician: URI Hale Date of Procedure: September 08, 2024 Equipment: Olympus 190 variable stiffness pediatric colonoscope Sedation: MAC sedation Indication: Mrs. Denis is a 63-year-old female who is here for follow-up surveillance colonoscopy. She had a colonoscopy in September 2013 and had 2 polyps (small serrated adenoma x 1/hyperplastic polyp x 1) which were removed. Her last colonoscopy in September 2018 revealed 4 polyps (hyperplastic polyps x 3/mucosal prolapse polyp x 1). She does state that her maternal grandmother had colon problems and possibly colon cancer. The patient reports no abdominal pain, weight loss, change in her bowel habits or rectal bleeding. Procedure: Prior to the procedure, a history and physical exam was performed, and patient's medications and allergies were reviewed. The risks, benefits and alternatives of the sedation and procedure were discussed with the patient. All questions were answered and informed consent was obtained. The patient was brought to the procedure room. Patient identification and proposed procedure were verified by the physician and the nurse. The patient was placed in a left lateral decubitus position and the scope was passed under direct vision. Throughout the procedure, the patient's blood pressure, pulse, and oxygen saturations were monitored continuously. The colonoscopy was accomplished without difficulty. The patient tolerated the procedure well. Findings: On digital rectal examination there was normal rectal tone. There were no external hemorrhoids. The colonoscope was introduced through the anal canal to the rectum and advanced to the cecum. The ileocecal valve and appendiceal orifice were identified. The scope was advanced a short distance into the ileum which appeared grossly normal. The scope was then withdrawn into the colon. There was a single 3 to 4 mm polyp in the ascending colon removed via cold snare polypectomy. There was mild to moderate melanosis coli throughout the colon. There were scattered diverticuli throughout the colon but more predominantly in the descending and sigmoid colon (LEFT colon). The rectum itself was normal. Upon retroflexion within the rectum there were grade 1-2 internal hemorrhoids. The preparation was excellent throughout with Charlotte Preparation Score of 9. Th e cecal time was 10 minutes. Impression: 1. Diminutive ascending colon polyp (3 to 4 mm) 2. 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 Pandiverticulosis 4. Grade 1-2 internal hemorrhoids Plan: I would recommend repeat surveillance colonoscopy again in 7 to 10 years. I would continue the fiber bowel regimen (combined MiraLAX plus Citrucel) on a maintenance basis.
[2024-09-08 10:06] VITALS: BP 135/60; PULSE 85; RESP 17; TEMP 36.1; O2SAT 95
[2024-09-08 10:16] VITALS: BP 122/60; PULSE 74; RESP 18; O2SAT 99
[2024-09-08 10:26] VITALS: BP 118/69; PULSE 76; RESP 18; O2SAT 100
[2024-09-08 10:36] VITALS: BP 120/77; PULSE 68; RESP 18; O2SAT 100
== END 2024-09-08 10:59 | disposition home or self-care (01) ==
PROVIDERS: PCP Internal Medicine; Visit Provider Internal Medicine Gastroenterology
PROC: 0DJD8ZZ Inspection of Lower Intestinal Tract, Via Natural or Artificial Opening Endoscopic (ICD-10-PCS; CPT 45378; principal; 2024-09-08 09:30)
DX: K63.5 Polyp of colon (principal); K63.89 Other specified diseases of intestine; K57.30 Diverticulosis of large intestine without perforation or abscess without bleeding; K64.0 First degree hemorrhoids; K64.1 Second degree hemorrhoids; Z86.0101 Personal history of adenomatous and serrated colon polyps; Z87.891 Personal history of nicotine dependence; Z79.82 Long term (current) use of aspirin; Z79.899 Other long term (current) drug therapy; Z88.2 Allergy status to sulfonamides; Z90.49 Acquired absence of other specified parts of digestive tract
CPT/HCPCS: 45385; J2003; J2704

== ENCOUNTER 2024-11-08 16:30 | Outpatient (CLI) | payer OTHER, SELFPAY ==
[2024-11-08 18:25] LABS: Hemoglobin A1C 5.2 % (4.0-6.0)
[2024-11-08 18:45] LABS: Chloride 104 mmol/L (98-107)
[2024-11-08 18:46] LABS: Potassium 4.2 mmoL/L (3.5-5.1); Sodium 135 mmol/L (136-145)
[2024-11-08 18:48] LABS: Alanine Aminotransferase 21 U/L (12-78); Aspartate Amino Transferase 26 U/L (14-36); Blood Urea Nitrogen 30 mg/dl (7-17); Creatinine,Serum 1.10 mg/dl (0.52-1.04); Estimated Glomerular Filt Rate 50 ml/min (>60); GFR (African American) 61 ML/MIN (>60)
[2024-11-08 18:49] LABS: Alkaline Phosphatase 82 U/L (38-126); Bilirubin,Total 0.2 mg/dl (0.2-1.3); Calcium 9.6 mg/dl (8.4-10.2); Cholesterol 213 mg/dl (140-200); Glucose 87 mg/dl (74-100); HDL Cholesterol 83 mg/dl (40-60); Total Protein,Serum 7.2 g/dl (6.3-8.2); Triglycerides 82 mg/dl (30-150)
[2024-11-08 19:36] LABS: Thyroid Stimulating Hormone 0.25 uIU/mL (0.465-4.68)
[2024-11-08 19:42] LABS: Albumin Level 3.9 g/dl (3.5-5.0); Albumin/Globulin Ratio 1.2 (1.1-1.8); Anion Gap 11.2 mEq/L (5-15); Carbon Dioxide 24 mmol/L (22.0-30.0); Globulin 3.3 g/dL (1.3-3.2)
[2024-11-08 19:54] LABS: Vitamin B12 634 pg/mL (239-931)
--- OUTSIDE RECORDS SUMMARY | 2024-11-09 11:32 | XMS_ITS | Clinical Summary ---
[facility] Organization [facility] Address [address] [place] [address] Care Team Providers Care Ski Patrol Name Role Phone Reno Luz MD Primary Care Provider [phone] Allergies Active Allergy Reactions Criticality Noted Date Comments Sulfa Antibiotics Hives Low 02/01/2018 34 years ago Medications citalopram (CeleXA) 40 MG tablet Take 40 mg by mouth Daily. 0 8 Active lisinopril (PRINIVIL,ZESTR IL) 5 MG tablet Take 2.5 mg by mouth Daily. 0 9 Active furosemide (LASIX) 40 MG tablet Take 40 mg by mouth Daily. 0 9 Active omeprazole (priLOSEC) 40 MG capsule Take 40 mg by mouth Daily. 0 9 Active spironolactone (ALDACTONE) 50 MG tablet Take 50 mg by mouth Daily. 1 Active cholecalciferol (VITAMIN D3) 25 MCG (1000 UT) tablet Take 2,000 Units by mouth Daily. Active aspirin 81 MG EC tablet Take 81 mg by mouth Daily. Active loratadine (CLARITIN) 10 MG tablet Take 10 mg by mouth Daily. Active amLODIPine (NORVASC) 10 MG tablet Take 1 tablet by mouth Daily. Start when stop Coreg for procedure 10 tablet 1 Active Active Problems Problem Noted Date Diagnosed Date Diastolic dysfunction 05/29/2021 SVT (supraventricular tachycardia) Hypertension Family History Medical History Relation Name Comments No Known Problems Brother No Known Problems Father No Known Problems Maternal Aunt No Known Problems Maternal Grandfather No Known Problems Maternal Grandmother No Known Problems Maternal Uncle No Known Problems Mother No Known Problems Paternal Aunt No Known Problems Paternal Grandfather No Known Problems Paternal Grandmother No Known Problems Paternal Uncle Anesthesia problems Neg Hx Broken bones Neg Hx Cancer Neg Hx Clotting disorder Neg Hx Collagen disease Neg Hx Diabetes Neg Hx Dislocations Neg Hx Osteoporosis Neg Hx Rheumatologic disease Neg Hx Scoliosis Neg Hx Severe sprains Neg Hx Relation Name Status Comments Brother Alive Father Maternal Aunt Maternal Grandfather Maternal Grandmother Maternal Uncle Mother Alive Paternal Aunt Paternal Grandfather Paternal Grandmother Paternal Uncle Social History Tobacco Use Types Packs/Day Years Used Date Smoking Tobacco: Former Cigarettes 1 15 1 - 02/01/2002 Smokeless Tobacco: Never Comments:off and on for 15 y ears Alcohol Use Standard Drinks/Week Comments No 0 (1 standard drink = 0.6 oz pur e alcohol) Abuse Screen Answer Date Recorded Unsafe at Home or Work/School Not on file Feels Threatened by Someone? Not on file 01/2023 Does Anyone Keep You from Co ntacting Others or Doint Things Outside the Home? Not on file 01/20/2023 Physical Sign of Abuse Present Not on file 1 Housing Stability Answer Date Recorded Current Living Arrangements Not on file 01/11 Potentially Unsafe Housing Conditions Not on guanako e 01/20/2023 Family and Community Support Answer Meet e Recorded Help with Day-to-Day Activities Not on file 01/20/2023 Lonely or Isolated Not on file 01/20/2023 Employment Answer Date Recorded Do you want help finding or keeping work or a ashley b? Not on file 01/20/2023 Disabilities Answer Date Recorded Concentrating, Remembering, or Making Decisions Difficulty Not on file 01/20/2023 Doing Errands Independently Difficulty Not on fi le 01/20/2023 Education Answer Date Recorded Help with school or training? Not on file Preferred Language Not on file 01/20/2023 Comments No Sex and Gender Information Value Date Recorded Sex Assigned at Not on file Legal Sex Female 1:39 PM EDT Gender Identity Not on file Sexual Orientation Not on file Last Filed Vital Signs Vital Sign Reading Time Taken Comments Blood Pressure 110/76 09/30/2021 8:13 AM EDT Pulse 75 05/29/2021 8:40 AM EST Temperature 36.5 C (97.7 F) 02/18/2021 11:17 AM EST Respiratory Rate 15 02/18/2021 1:29 PM EST Oxygen Saturation 97% 05/29/2021 8:40 AM EST Inhaled Oxygen Concentration - - Weight 104 kg (230 lb) 09/30/2021 8:13 AM EDT Height 162.6 cm (5' 4.02 ) 09/30/2021 8:13 AM ED T Body Mass Index 39.46 09/30/2021 8:13 AM EDT Plan of Treatment Health Maintenance Due Date Last Done Comments Annual Gynecologic Pelvic an d Breast Exam 1960 TDAP/TD VACCINES (2 - Tdap) 06/15/2006 06/15/1996 COLOGUARD 09/15/2007 COLON CANCER SCREENING 5 YEA R SIGMOIDOSCOPY 09/15/2007 COLONOSCOPY 09/15/2007 COLORECTAL CANCER SCREENING 09/15/2007 CT COLONOGRAPHY 09/15/2007 FECAL OCCULT BLOOD TEST 09/15/2007 FIT Testing (1 year) 09/15/2007 Pneumococcal Vaccine 50+ (1 of 1 - PCV) 2012 ZOSTER VACCINE (1 of 2) 2012 ANNUAL PHYSICAL 02/01/2018 HEPATITIS C SCREENING 02/01/2018 MAMMOGRAM 01/02/2023 01/02/2021, 06/08/2018, 09/03/2017 COVID-19 Vaccine (2 - 2023- season) 12/13/202301/2021 INFLUENZA VACCINE 01/11/2025 [place] [address] [facility] PPO [facility] [place] [employer] Care Teams Ski Patrol Relationship Specialty Start Date End Date Reno Luz MD PCP - General Emergency Medicine 02/15/21
--- OUTSIDE RECORDS SUMMARY | 2024-11-09 11:32 | XMS_ITS | Patient Health Record ---
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 Name Role Phone Olivia Asif Unavailable [phone] Reason For Referral No Information Social History Social History Additional Details Category Social Info Options Details Miscellaneous: Caffeine: CAFFEINE USE: 1 Problems Problem Type SNOMED Code ICD Code Onset Dates Problem Status W/U Status Risk Notes Problem Reduced libido (8083145) Decreased libido (R68.82) 02/28/20 09 Active confirmed DECREASED LIBIDO Problem Family history of malignant neoplasm of breast (344392359) Fam Hx malignant neoplasm - breast (Z80.3) 02/28/20 09 Active confirmed BREAST CANCER, FAMILY HX Problem Adult health examination (413304492) Adult general medical exam (Z00.00) 02/28/20 09 Active confirmed ANNUAL EXAM Plan Of Treatment No Information Medical (General) History Medical History History ICD Code n/a ABORTIONS: 1 Surgical History Surgery Date(Month/Year) Back surgery-2003, Left ovar y removed and half left ovary removed in 1989
--- OUTSIDE RECORDS SUMMARY | 2024-11-09 11:32 | XMS_ITS | Clinical Summary ---
Author Organization [facility] Address [address], [address] [place] [address] Care Team Providers Care Green Prize Packer Name Role Phone Dilip Brand MD Primary Care Provider [phone] Social History Tobacco Use Types Packs/Day Years Used Date Smoking Tobacco: Never Smokeless Tobacco: Never Comments No Sex and Gender Information Value Date Recorded Sex Assigned at Not on file Legal Sex Female 12:40 PM EDT Gender Identity Not on file Sexual Orientation Not on file Last Filed Vital Signs Vital Sign Reading Time Taken Comments Blood Pressure - - Pulse - - Temperature - - Respiratory Rate - - Oxygen Saturation - - Inhaled Oxygen Concentration - - Weight 108.9 kg (240 lb) 01/02/2021 11:13 AM EDT Height 162.6 cm (5' 4 ) 01/02/2021 11:13 AM EDT Body Mass Index 41.2 01/02/2021 11:13 AM EDT Plan of Treatment Not on file Insurance ERIN SNELL [id number] [facility] Care Teams Green Prize Packer Relationship Specialty Start Date End Date Dilip Brand MD [address] [place] [address] PCP - General Family Medicine 09/13/18
== END 2024-11-08 23:59 | disposition home or self-care (01) ==
LOC: LAB.DROPOF 11-09 11:31
PROVIDERS: PCP Nurse Practitioner Family; Visit Provider Nurse Practitioner Family
DX: R63.5 Abnormal weight gain (principal); I10 Essential (primary) hypertension
CPT/HCPCS: 80053; 80061; 82607; 83036; 84443